=== PATIENT | female | born 1970 | race Two or more races ===

== ENCOUNTER 2020-09-15 09:19 | Emergency (ER) | payer BC, MEDICAID ==
[~2020-09-15] VITALS: Ht 162.6 cm; Wt 86.2 kg
[2020-09-15 10:07] VITALS: BP 150/87
[2020-09-15] MEDS ORDERED: TETANUS-DIPTH-ACEL PERTUSSIS 0.5ML SYR Tdap IM ONE (11:00)
== END 2020-09-15 11:40 | disposition home or self-care (01) ==
LOC: ER 09:19
DX: S61.512A Laceration without foreign body of left wrist, initial encounter (principal); E11.9 Type 2 diabetes mellitus without complications; W26.8XXA Contact with other sharp object(s), not elsewhere classified, initial encounter; Y93.89 Activity, other specified; Y92.89 Other specified places as the place of occurrence of the external cause; Y99.8 Other external cause status
CPT/HCPCS: 90471; 90715

== ENCOUNTER 2020-10-17 06:29 | Inpatient (IN) | payer BC ==
[2020-10-17] VITALS (44 sets, daily range): BP systolic 73–134; BP diastolic 35–57
[~2020-10-17] VITALS: Ht 162.6 cm; Wt 81.4 kg
[2020-10-17] MEDS ORDERED: SODIUM CHLORIDE 0.9% 1,000 ML IVB ONE (07:45)
[2020-10-17 08:07] LABS: Basophils # (auto) 0.1 10 ^3/uL (0-0.2); Eosinophils % (auto) 0.2 % (0.0-7.0); Nucleated Red Blood Cells % 0.1 %
[2020-10-17 08:09] LABS: Basophils % (auto) 0.4 % (0.0-2.0); Eosinophils # (auto) 0 10 ^3/uL (0-0.8); Hematocrit 25.9 % (36.0-46.0); Lymphocytes # (auto) 2.5 10 ^3/uL (0.4-5.4); Lymphocytes % (auto) 11.5 % (10.0-50.0); Mean Corpuscular Hemoglobin 26.5 pg (28.0-32.0); Mean Corpuscular Hgb Conc. 25.9 g/dL (32.0-36.0); Mean Corpuscular Volume 102.2 fL (80.0-100.0); Monocytes # (auto) 1.8 10 ^3/uL (0-1.3); Monocytes % (auto) 8.2 % (0.0-12.0); Neutrophils # (auto) 17.1 10 ^3/uL (1.6-8.6); Neutrophils % (auto) 79.7 % (37.0-80.0); Red Blood Cells 2.53 10^6/uL (4.0-5.20); White Blood Cell 21.5 10^3/uL (4.4-10.8)
[2020-10-17] MEDS ORDERED: SODIUM BICARBONATE 8.4% INJ 50ML SYRINGE ONE (08:12)
[2020-10-17] MEDS ORDERED: SODIUM BICARBONATE 8.4 % INJ 50ML VIAL IV ONE ×2 (08:15→09:00)
[2020-10-17 08:22] LABS: Hemoglobin 6.7 g/dL (12.2-16.2)
[2020-10-17 08:35] LABS: Magnesium 2.5 mg/dL (1.6-2.6)
[2020-10-17 08:38] LABS: Bilirubin, Total 0.3 mg/dL (0.2-1.0); Total Protein 4.9 g/dL (6.4-8.2)
[2020-10-17] MEDS ORDERED: SODIUM CHLORIDE 0.9% 2,000 ML IV ONE (08:45)
[2020-10-17] MEDS ORDERED: INSULIN LANTUS (GLARGINE) 1 /0.01ml (100units/ml) SC ONE (09:00)
[2020-10-17] MEDS ORDERED: InsuLIN REG 1unit/0.01ml Soln (100units/ml) IV ONE (09:00)
[2020-10-17] MEDS ORDERED: LORazepam 2MG/ML-1ML VIAL ONE (09:00)
[2020-10-17] MEDS ORDERED: CALCIUM GLUC 1,000mg/50ml-NS 50 ML IV ONE (09:00)
[2020-10-17] MEDS ORDERED: InsuLIN REG 1unit/0.01ml Soln (100units/ml) ONE (09:00)
[2020-10-17] MEDS ORDERED: LORazepam 2MG/ML-1ML VIAL IV ONE ×2 (09:00→11:45)
[2020-10-17] MEDS ORDERED: DEXTROSE (50%) 50ML SYRG IV PRN ×2 (09:00→21:15)
[2020-10-17] MEDS ORDERED: NOREPINEPHRINE 8 MG/250ML KIT 250 ML IV ONE (09:00)
[2020-10-17] MEDS ORDERED: InsuLIN R (HUMAN) 100 UNITS in SODIUM CHL 0.9% 99 ML IV SCH ×4 (09:00→15:30)
[2020-10-17 09:08] LABS: BUN/Creatinine Ratio 15.7; Calcium 5.7 mg/dL (8.5-10.1); Potassium 6.4 mmol/L (3.5-5.1)
[2020-10-17 09:14] LABS: Urine Bacteria NONE SEEN /hpf (None Seen); Urine Blood 1+ /uL (Negative); Urine Hyaline Cast FEW /lpf (0 - 2); Urine Specific Gravity 1.017 (1.001-1.035); Urine WBC 2 /hpf (0 - 5)
[2020-10-17] MEDS: SODIUM CHLORIDE 0.9% 1,000 ML IV SCH ×6 (09:19→20:39)
[2020-10-17] MEDS: NOREPINEPHRINE 8 MG/250ML KIT 250 ML IV SCH ×2 (09:19→17:42)
[2020-10-17] MEDS: ACCU-CHEK COMFORT CURVE STRIP VI SCH ×9 (09:20→22:39)
[2020-10-17 09:29] LABS: Alcohol, Urine < 3.0 mg/dL (0-10); Amphetamine Screen, Urine NEGATIVE (NEGATIVE); Barbiturate Scree,Urine NEGATIVE (NEGATIVE); Benzodiazephine Screen, Urine NEGATIVE (NEGATIVE); Cannabinoid Screen, Urine NEGATIVE (NEGATIVE); Cocaine Screen, Urine NEGATIVE (NEGATIVE); Opiate Scree,Urine NEGATIVE (NEGATIVE); Phencyclidine Screen, Urine NEGATIVE (NEGATIVE)
[2020-10-17 09:33] LABS: Magnesium 2.1 mg/dL (1.6-2.6)
[2020-10-17 10:09] LABS: Phosphorus 9.6 mg/dL (2.5-4.90)
[2020-10-17 10:28] LABS: Lactic Acid w/Reflex 4.7 mmol/L (0.4-2.0)
[2020-10-17] MEDS ORDERED: INSREG3 (11:02)
[2020-10-17] MEDS ORDERED: GABA300C10 PO (11:02)
[2020-10-17] MEDS ORDERED: INSU1INJ19 SC (11:02)
[2020-10-17] MEDS ORDERED: LOSA-69 PO (11:02)
[2020-10-17] MEDS ORDERED: PROCHLORPERAZINE EDISYLATE 5 MG/ML 2ML VIAL ONE (11:36)
[2020-10-17] MEDS ORDERED: PROCHLORPERAZINE EDISYLATE 5 MG/ML 2ML VIAL IV ONE (11:45)
[2020-10-17 11:58] LABS: BUN/Creatinine Ratio 16.8; Calcium 7.2 mg/dL (8.5-10.1); Potassium 4.8 mmol/L (3.5-5.1)
[2020-10-17] MEDS ORDERED: ETOMIDATE (2MG/ML) 20ML VIAL IV ONE ×2 (12:17→12:45)
[2020-10-17] MEDS ORDERED: PROPOFOL 100 ML IV ONE (12:17)
[2020-10-17] MEDS ORDERED: ROCURONIUM 10MG/ML 10ML VIAL IV ONE ×2 (12:17→12:45)
[2020-10-17] MEDS ORDERED: fentaNYL Drip 2500mCg/250mlNS 250 ML IV ONE (12:19)
[2020-10-17] MEDS: PROPOFOL 100 ML IV SCH ×3 (12:51→20:37)
[2020-10-17] MEDS: fentaNYL Drip 2500mCg/250mlNS 250 ML IV SCH (12:51)
[2020-10-17] MEDS ORDERED: SODIUM CHLORIDE 0.9% 1,000 ML IV SCH (13:00)
[2020-10-17] MEDS ORDERED: NITROGLYCERIN 0.4 MG SL TAB SL PRN (13:00)
[2020-10-17] MEDS ORDERED: MORPHINE SULF INJ 2 MG/ML SYRINGE 1ML IV PRN (13:00)
[2020-10-17] MEDS ORDERED: MIDAZOLAM DRIP 50 mg/50mL 50 ML IV ONE (14:30)
[2020-10-17] MEDS: MIDAZOLAM DRIP 50 mg/50mL 50 ML IV SCH (14:30)
[2020-10-17] MEDS: CLINDAMYCIN 300MG IV 50 ML IV SCH ×2 (15:14→15:24)
[2020-10-17 15:34] LABS: Cholesterol 112 mg/dL (< 200); Triglycerides 174 mg/dL (< 150)
[2020-10-17 15:37] LABS: HDL Cholesterol 32 mg/dL (40-59); LDL Cholesterol 65 mg/dL (< 100)
[2020-10-17] MEDS: PHENYLEPHRINE IV 250 ML IV SCH (17:12)
[2020-10-17 17:49] LABS: BUN/Creatinine Ratio 18.3; Calcium 6.9 mg/dL (8.5-10.1); Potassium 3.5 mmol/L (3.5-5.1)
[2020-10-17 21:23] LABS: Calcium 7.3 mg/dL (8.5-10.1); Potassium 3.2 mmol/L (3.5-5.1)
[2020-10-17 21:25] LABS: BUN/Creatinine Ratio 18.5
[2020-10-17] MEDS: InsuLIN R (HUMAN) 100 UNITS in SODIUM CHL 0.9% 99 ML IV SCH ×2 (21:29→22:42)
[2020-10-17] MEDS ORDERED: POTASSIUM CHL 20MEQ/100ML 100 ML IV ONE (22:45)
[2020-10-17] MEDS: SOD CHL 0.45% 1,000 ML IV SCH (23:13)
[2020-10-18] VITALS (103 sets, daily range): BP systolic 95–130; BP diastolic 46–77
[2020-10-18] MEDS: ACCU-CHEK COMFORT CURVE STRIP VI SCH ×13 (00:11→18:05)
[2020-10-18] MEDS: PHENYLEPHRINE IV 250 ML IV SCH ×3 (00:35→17:15)
[2020-10-18] MEDS: SODIUM CHLORIDE 0.9% 1,000 ML IV SCH ×3 (01:45→11:03)
[2020-10-18 04:06] LABS: Basophils # (auto) 0.1 10 ^3/uL (0-0.2); Eosinophils # (auto) 0 10 ^3/uL (0-0.8); Eosinophils % (auto) 0.1 % (0.0-7.0); Hemoglobin 10.1 g/dL (12.2-16.2); Mean Corpuscular Hgb Conc. 33.4 g/dL (32.0-36.0); Red Cell Distribution Width 17.3 % (11.8-14.3)
[2020-10-18 04:07] LABS: Basophils % (auto) 0.4 % (0.0-2.0); Hematocrit 30.2 % (36.0-46.0); Lymphocytes # (auto) 2.4 10 ^3/uL (0.4-5.4); Lymphocytes % (auto) 10.5 % (10.0-50.0); Mean Corpuscular Hemoglobin 26.5 pg (28.0-32.0); Mean Corpuscular Volume 79.4 fL (80.0-100.0); Monocytes # (auto) 1.3 10 ^3/uL (0-1.3); Neutrophils # (auto) 18.5 10 ^3/uL (1.6-8.6); Red Blood Cells 3.81 10^6/uL (4.0-5.20); White Blood Cell 22.3 10^3/uL (4.4-10.8)
[2020-10-18 04:20] LABS: Calcium 6.8 mg/dL (8.5-10.1); Magnesium 2.1 mg/dL (1.6-2.6); Potassium 3.5 mmol/L (3.5-5.1)
[2020-10-18 04:26] LABS: Albumin 2.7 g/dL (3.4-5.0); BUN/Creatinine Ratio 22.2; Bilirubin, Total 0.6 mg/dL (0.2-1.0); Phosphorus 1.7 mg/dL (2.5-4.90); Total Protein 6.3 g/dL (6.4-8.2)
[2020-10-18] MEDS: CLINDAMYCIN 300MG IV 50 ML IV SCH ×3 (06:29→22:08)
[2020-10-18] MEDS: cefTRIAXone 1GM/50ML D5W 50 ML IV SCH (09:05)
[2020-10-18] MEDS: PROPOFOL 100 ML IV SCH ×3 (09:05→19:58)
[2020-10-18] MEDS: fentaNYL Drip 2500mCg/250mlNS 250 ML IV SCH (09:22)
[2020-10-18] MEDS: INSULIN LANTUS (GLARGINE) 1 /0.01ml (100units/ml) SC SCH (10:18)
[2020-10-18] MEDS: PANTOPRAZOLE 40 MG/10 ML VIAL INJ IV SCH (10:18)
[2020-10-18] MEDS: SOD CHL 0.45% 1,000 ML IV SCH ×2 (11:03→18:45)
[2020-10-18] MEDS: NOREPINEPHRINE 8 MG/250ML KIT 250 ML IV SCH ×2 (11:22→19:58)
[2020-10-18 12:51] LABS: BUN/Creatinine Ratio 18.4; Calcium 6.6 mg/dL (8.5-10.1); Potassium 3.5 mmol/L (3.5-5.1)
[2020-10-18] MEDS: MIDAZOLAM DRIP 50 mg/50mL 50 ML IV SCH (15:24)
[2020-10-18] MEDS ORDERED: DEXTROSE (50%) 50ML SYRG IV PRN (20:30)
[2020-10-19] VITALS (102 sets, daily range): BP systolic 88–192; BP diastolic 40–95
[2020-10-19] MEDS: ACCU-CHEK COMFORT CURVE STRIP VI SCH ×5 (00:17→23:46)
[2020-10-19] MEDS: InsuLIN REG 1unit/0.01ml Soln (100units/ml) SC SCH ×5 (00:19→23:52)
[2020-10-19] MEDS: PHENYLEPHRINE IV 250 ML IV SCH ×3 (01:35→17:57)
[2020-10-19] MEDS: SOD CHL 0.45% 1,000 ML IV SCH ×3 (03:09→16:44)
[2020-10-19 04:34] LABS: Basophils # (auto) 0.1 10 ^3/uL (0-0.2); Basophils % (auto) 0.7 % (0.0-2.0); Eosinophils # (auto) 0.2 10 ^3/uL (0-0.8); Eosinophils % (auto) 1.5 % (0.0-7.0); Hematocrit 26.7 % (36.0-46.0); Lymphocytes # (auto) 2.4 10 ^3/uL (0.4-5.4); Mean Corpuscular Hemoglobin 26.7 pg (28.0-32.0); Mean Corpuscular Hgb Conc. 33.5 g/dL (32.0-36.0); Mean Corpuscular Volume 79.5 fL (80.0-100.0); Monocytes # (auto) 0.7 10 ^3/uL (0-1.3); Monocytes % (auto) 5.7 % (0.0-12.0); Neutrophils # (auto) 8.2 10 ^3/uL (1.6-8.6); Neutrophils % (auto) 71.1 % (37.0-80.0); Nucleated Red Blood Cells % 0.1 %; Red Blood Cells 3.36 10^6/uL (4.0-5.20); White Blood Cell 11.6 10^3/uL (4.4-10.8)
[2020-10-19 04:51] LABS: Calcium 6.6 mg/dL (8.5-10.1); Potassium 3.1 mmol/L (3.5-5.1)
[2020-10-19 04:52] LABS: BUN/Creatinine Ratio 12.4
[2020-10-19] MEDS: CLINDAMYCIN 300MG IV 50 ML IV SCH ×3 (06:10→22:30)
[2020-10-19] MEDS: PROPOFOL 100 ML IV SCH ×2 (07:24→13:04)
[2020-10-19] MEDS: fentaNYL Drip 2500mCg/250mlNS 250 ML IV SCH (08:52)
[2020-10-19] MEDS: cefTRIAXone 1GM/50ML D5W 50 ML IV SCH (09:04)
[2020-10-19] MEDS: INSULIN LANTUS (GLARGINE) 1 /0.01ml (100units/ml) SC SCH (10:10)
[2020-10-19] MEDS: PANTOPRAZOLE 40 MG/10 ML VIAL INJ IV SCH (10:17)
[2020-10-19] MEDS: POTASSIUM CHL 20MEQ/100ML 100 ML IV SCH ×2 (12:24→14:19)
[2020-10-19] MEDS: MIDAZOLAM DRIP 50 mg/50mL 50 ML IV SCH (15:45)
[2020-10-19] MEDS ORDERED: hydrALAZINE HCL 20 MG/ML VL ONE (16:47)
[2020-10-19] MEDS ORDERED: ACETAMINOPHEN 650 mg PER 20.3 mL UD ONE (16:47)
[2020-10-19] MEDS: LORazepam 2MG/ML-1ML VIAL IV PRN (18:14)
[2020-10-20] VITALS (101 sets, daily range): BP systolic 82–187; BP diastolic 32–90
[2020-10-20] MEDS: SOD CHL 0.45% 1,000 ML IV SCH ×3 (00:45→22:03)
[2020-10-20] MEDS: PHENYLEPHRINE IV 250 ML IV SCH ×3 (02:35→19:15)
[2020-10-20 04:00] LABS: Basophils # (auto) 0.1 10 ^3/uL (0-0.2); Eosinophils # (auto) 0.1 10 ^3/uL (0-0.8); Hematocrit 29.4 % (36.0-46.0); Mean Corpuscular Hemoglobin 26.4 pg (28.0-32.0); Monocytes # (auto) 0.5 10 ^3/uL (0-1.3); White Blood Cell 10.2 10^3/uL (4.4-10.8)
[2020-10-20 04:01] LABS: Basophils % (auto) 0.8 % (0.0-2.0); Eosinophils % (auto) 1.3 % (0.0-7.0); Hemoglobin 9.7 g/dL (12.2-16.2); Lymphocytes # (auto) 2.1 10 ^3/uL (0.4-5.4); Lymphocytes % (auto) 20.8 % (10.0-50.0); Mean Corpuscular Volume 79.9 fL (80.0-100.0); Monocytes % (auto) 4.4 % (0.0-12.0); Neutrophils # (auto) 7.4 10 ^3/uL (1.6-8.6); Neutrophils % (auto) 72.7 % (37.0-80.0); Nucleated Red Blood Cells % 0.1 %; Red Blood Cells 3.68 10^6/uL (4.0-5.20); Red Cell Distribution Width 17.9 % (11.8-14.3)
[2020-10-20 04:11] LABS: INR 0.97 (0.9-1.15); Partial Thromboplastin Time 24.8 sec (23.0-31.2)
[2020-10-20 05:14] LABS: Albumin 2.1 g/dL (3.4-5.0); Bilirubin, Direct 0.1 mg/dL (0-0.2); Calcium 7.1 mg/dL (8.5-10.1); Magnesium 2.2 mg/dL (1.6-2.6); Potassium 3.4 mmol/L (3.5-5.1)
[2020-10-20 05:17] LABS: BUN/Creatinine Ratio 10.8; Bilirubin, Total 0.6 mg/dL (0.2-1.0)
[2020-10-20] MEDS: ACCU-CHEK COMFORT CURVE STRIP VI SCH ×3 (06:06→17:59)
[2020-10-20] MEDS: InsuLIN REG 1unit/0.01ml Soln (100units/ml) SC SCH ×3 (06:08→18:50)
[2020-10-20] MEDS: NOREPINEPHRINE 8 MG/250ML KIT 250 ML IV SCH (09:00)
[2020-10-20] MEDS: INSULIN LANTUS (GLARGINE) 1 /0.01ml (100units/ml) SC SCH (09:59)
[2020-10-20] MEDS: cefTRIAXone 1GM/50ML D5W 50 ML IV SCH (10:12)
[2020-10-20] MEDS: PANTOPRAZOLE 40 MG/10 ML VIAL INJ IV SCH (10:12)
[2020-10-20] MEDS: ENOXAPARIN SOD 40 MG/0.4 ML SYRINGE SC SCH (10:13)
[2020-10-20] MEDS: fentaNYL Drip 2500mCg/250mlNS 250 ML IV SCH (12:45)
[2020-10-20] MEDS: MIDAZOLAM DRIP 50 mg/50mL 50 ML IV SCH (15:45)
[2020-10-20] MEDS: POTASSIUM CHL 20MEQ/100ML 100 ML IV SCH (22:03)
[2020-10-20 22:45] LABS: Urine Bacteria NONE SEEN /hpf (None Seen); Urine Blood 2+ /uL (Negative); Urine Budding Yeast LOADED /hpf (None Seen); Urine Specific Gravity 1.019 (1.001-1.035); Urine WBC 116 /hpf (0 - 5); Urine WBC Clumps PRESENT /hpf (None Seen)
[2020-10-21] VITALS (92 sets, daily range): BP systolic 87–178; BP diastolic 37–87
[2020-10-21] MEDS: POTASSIUM CHL 20MEQ/100ML 100 ML IV SCH (00:11)
[2020-10-21] MEDS: ACCU-CHEK COMFORT CURVE STRIP VI SCH ×4 (00:11→18:04)
[2020-10-21] MEDS: InsuLIN REG 1unit/0.01ml Soln (100units/ml) SC SCH ×4 (00:23→18:00)
[2020-10-21] MEDS: ACETAMINOPHEN 650 mg PER 20.3 mL UD GT PRN (00:31)
[2020-10-21] MEDS: PHENYLEPHRINE IV 250 ML IV SCH ×2 (03:35→09:52)
[2020-10-21 06:16] LABS: Basophils # (auto) 0.1 10 ^3/uL (0-0.2); Eosinophils # (auto) 0.6 10 ^3/uL (0-0.8); Hemoglobin 8.9 g/dL (12.2-16.2); Lymphocytes # (auto) 1.5 10 ^3/uL (0.4-5.4); Monocytes # (auto) 0.7 10 ^3/uL (0-1.3); Red Blood Cells 3.39 10^6/uL (4.0-5.20)
[2020-10-21 06:18] LABS: Basophils % (auto) 1.1 % (0.0-2.0); Eosinophils % (auto) 5.5 % (0.0-7.0); Hematocrit 27.5 % (36.0-46.0); Lymphocytes % (auto) 12.7 % (10.0-50.0); Mean Corpuscular Hemoglobin 26.4 pg (28.0-32.0); Mean Corpuscular Hgb Conc. 32.5 g/dL (32.0-36.0); Mean Corpuscular Volume 81.2 fL (80.0-100.0); Monocytes % (auto) 6.2 % (0.0-12.0); Neutrophils # (auto) 8.6 10 ^3/uL (1.6-8.6); Neutrophils % (auto) 74.5 % (37.0-80.0); Red Cell Distribution Width 18.3 % (11.8-14.3); White Blood Cell 11.5 10^3/uL (4.4-10.8)
[2020-10-21 06:36] LABS: Potassium 3.6 mmol/L (3.5-5.1)
[2020-10-21] MEDS: SOD CHL 0.45% 1,000 ML IV SCH ×2 (07:00→16:45)
[2020-10-21] MEDS: NOREPINEPHRINE 8 MG/250ML KIT 250 ML IV SCH (08:29)
[2020-10-21] MEDS: ENOXAPARIN SOD 40 MG/0.4 ML SYRINGE SC SCH (08:34)
[2020-10-21] MEDS: PANTOPRAZOLE 40 MG/10 ML VIAL INJ IV SCH (08:34)
[2020-10-21] MEDS: cefTRIAXone 1GM/50ML D5W 50 ML IV SCH (08:34)
[2020-10-21] MEDS: LORazepam 2MG/ML-1ML VIAL IV PRN ×2 (08:54→14:12)
[2020-10-21] MEDS: INSULIN LANTUS (GLARGINE) 1 /0.01ml (100units/ml) SC SCH (09:47)
[2020-10-21] MEDS: fentaNYL Drip 2500mCg/250mlNS 250 ML IV SCH (11:12)
[2020-10-21] MEDS: PROPOFOL 100 ML IV SCH ×3 (12:45→23:13)
[2020-10-21] MEDS: MIDAZOLAM DRIP 50 mg/50mL 50 ML IV SCH (14:04)
[2020-10-22] VITALS (91 sets, daily range): BP systolic 87–209; BP diastolic 33–158
[2020-10-22] MEDS: ACETAMINOPHEN 650 mg PER 20.3 mL UD GT PRN (00:05)
[2020-10-22] MEDS: InsuLIN REG 1unit/0.01ml Soln (100units/ml) SC SCH ×4 (00:18→18:08)
[2020-10-22] MEDS: ACCU-CHEK COMFORT CURVE STRIP VI SCH ×5 (00:18→18:07)
[2020-10-22] MEDS: SOD CHL 0.45% 1,000 ML IV SCH ×2 (03:02→13:00)
[2020-10-22] MEDS: PROPOFOL 100 ML IV SCH ×5 (03:04→23:01)
[2020-10-22 04:07] LABS: Basophils # (auto) 0.1 10 ^3/uL (0-0.2); Eosinophils # (auto) 0.5 10 ^3/uL (0-0.8); Lymphocytes # (auto) 1.1 10 ^3/uL (0.4-5.4); Monocytes # (auto) 0.7 10 ^3/uL (0-1.3); Red Cell Distribution Width 17.5 % (11.8-14.3); White Blood Cell 11.4 10^3/uL (4.4-10.8)
[2020-10-22 04:08] LABS: Basophils % (auto) 0.5 % (0.0-2.0); Eosinophils % (auto) 4.2 % (0.0-7.0); Hematocrit 26.4 % (36.0-46.0); Hemoglobin 8.6 g/dL (12.2-16.2); Lymphocytes % (auto) 9.6 % (10.0-50.0); Mean Corpuscular Hemoglobin 26.4 pg (28.0-32.0); Mean Corpuscular Hgb Conc. 32.6 g/dL (32.0-36.0); Monocytes % (auto) 6.4 % (0.0-12.0); Neutrophils % (auto) 79.3 % (37.0-80.0); Nucleated Red Blood Cells % 0.1 %; Red Blood Cells 3.26 10^6/uL (4.0-5.20)
[2020-10-22 04:25] LABS: Potassium 3.3 mmol/L (3.5-5.1)
[2020-10-22 04:33] LABS: Albumin 1.7 g/dL (3.4-5.0); BUN/Creatinine Ratio 13.5; Bilirubin, Total 0.1 mg/dL (0.2-1.0); Calcium 7.4 mg/dL (8.5-10.1); Total Protein 5.6 g/dL (6.4-8.2)
[2020-10-22] MEDS: PHENYLEPHRINE IV 250 ML IV SCH ×4 (07:32→21:15)
[2020-10-22] MEDS: NOREPINEPHRINE 8 MG/250ML KIT 250 ML IV SCH (08:51)
[2020-10-22] MEDS: cefTRIAXone 1GM/50ML D5W 50 ML IV SCH (08:53)
[2020-10-22] MEDS: PANTOPRAZOLE 40 MG/10 ML VIAL INJ IV SCH (08:53)
[2020-10-22] MEDS: ENOXAPARIN SOD 40 MG/0.4 ML SYRINGE SC SCH (08:56)
[2020-10-22] MEDS ORDERED: TPN PER PHARMACY 0 ML IV SCH (10:00)
[2020-10-22] MEDS: INSULIN LANTUS (GLARGINE) 1 /0.01ml (100units/ml) SC SCH (10:00)
[2020-10-22] MEDS: fentaNYL Drip 2500mCg/250mlNS 250 ML IV SCH (10:53)
[2020-10-22 11:36] LABS: Magnesium 2.2 mg/dL (1.6-2.6)
[2020-10-22 11:41] LABS: Phosphorus 2.8 mg/dL (2.5-4.90); Pre Albumin 5.7 mg/dL (20.0-40.0)
[2020-10-22] MEDS ORDERED: POTASSIUM PHOSPHATE 22 MEQ in SODIUM CHL 0.9% 100 ML IV ONE (13:00)
[2020-10-22] MEDS ORDERED: ALBUTEROL SULF 2.5 MG/0.5ML(0.5%) NEB SOLN ONE (13:55)
[2020-10-22] MEDS: MIDAZOLAM DRIP 50 mg/50mL 50 ML IV SCH (15:24)
[2020-10-22 15:37] LABS: Urine Bacteria MANY /hpf (None Seen); Urine Blood 2+ /uL (Negative); Urine Budding Yeast LOADED /hpf (None Seen); Urine Specific Gravity 1.017 (1.001-1.035); Urine WBC 661 /hpf (0 - 5); Urine WBC Clumps PRESENT /hpf (None Seen)
[2020-10-22] MEDS ORDERED: FUROSEMIDE 40 MG/4 ML VIAL IV ONE (16:00)
[2020-10-22] MEDS ORDERED: DEXTROSE (50%) 50ML SYRG IV SCH (18:00)
[2020-10-22] MEDS ORDERED: TPN PER PHARMACY IV NR ×7 (20:00)
[2020-10-23] VITALS (89 sets, daily range): BP systolic 89–182; BP diastolic 37–116
[2020-10-23] MEDS: ACCU-CHEK COMFORT CURVE STRIP VI SCH ×4 (00:14→17:43)
[2020-10-23] MEDS: InsuLIN REG 1unit/0.01ml Soln (100units/ml) SC SCH ×4 (00:15→18:03)
[2020-10-23] MEDS: PROPOFOL 100 ML IV SCH ×5 (03:01→22:52)
[2020-10-23 04:25] LABS: Albumin 1.6 g/dL (3.4-5.0); Calcium 7.2 mg/dL (8.5-10.1); Magnesium 1.9 mg/dL (1.6-2.6); Potassium 3.2 mmol/L (3.5-5.1)
[2020-10-23 04:27] LABS: BUN/Creatinine Ratio 10.7
[2020-10-23] MEDS: SOD CHL 0.45% 1,000 ML IV SCH ×3 (04:27→18:45)
[2020-10-23 04:30] LABS: Bilirubin, Total 0.2 mg/dL (0.2-1.0); Phosphorus 2.9 mg/dL (2.5-4.90); Total Protein 5.6 g/dL (6.4-8.2)
[2020-10-23] MEDS: PHENYLEPHRINE IV 250 ML IV SCH ×3 (05:35→22:15)
[2020-10-23] MEDS: NOREPINEPHRINE 8 MG/250ML KIT 250 ML IV SCH (08:42)
[2020-10-23] MEDS: cefTRIAXone 1GM/50ML D5W 50 ML IV SCH (08:42)
[2020-10-23] MEDS ORDERED: FUROSEMIDE 40 MG/4 ML VIAL IV ONE (09:15)
[2020-10-23] MEDS: POTASSIUM CHL 20MEQ/100ML 100 ML IV SCH ×5 (09:18→13:15)
[2020-10-23] MEDS: PANTOPRAZOLE 40 MG/10 ML VIAL INJ IV SCH (10:06)
[2020-10-23] MEDS: ENOXAPARIN SOD 40 MG/0.4 ML SYRINGE SC SCH (10:07)
[2020-10-23] MEDS: INSULIN LANTUS (GLARGINE) 1 /0.01ml (100units/ml) SC SCH (10:09)
[2020-10-23] MEDS ORDERED: GLYCOPYRROLATE 0.2 MG/ML 1ML VIAL IV ONE (10:30)
[2020-10-23] MEDS: MIDAZOLAM DRIP 50 mg/50mL 50 ML IV SCH ×2 (11:16→20:19)
[2020-10-23] MEDS: fentaNYL Drip 2500mCg/250mlNS 250 ML IV SCH ×2 (12:06→19:47)
[2020-10-23] MEDS: ALBUTEROL SULF 2.5 MG/0.5ML(0.5%) NEB SOLN NEB SCH ×3 (16:12→22:11)
[2020-10-23] MEDS: ACETYLCYSTEINE 10 %(100MG/ML) SOL 4ML NEB SCH ×2 (16:13→18:44)
[2020-10-23] MEDS ORDERED: VANCOMYCIN PER PHARMACY 0 MG IV SCH (17:30)
[2020-10-23] MEDS ORDERED: ACYCLOVIR 10MG/KG Q8HR PER RX 0 ML IV SCH (17:30)
[2020-10-23] MEDS ORDERED: VANCOMYCIN 1GM/250ML 250 ML IV ONE (18:00)
[2020-10-23] MEDS ORDERED: TPN PER PHARMACY IV NR ×10 (20:00)
[2020-10-23] MEDS: ACYCLOVIR SOD 50MG/ML 700 MG in SODIUM CHL 0.9% 250 ML IV SCH (20:10)
[2020-10-23] MEDS: CEFTRIAXONE SODIUM 2 GM in D5W 5% 50 ML IV SCH (21:58)
[2020-10-23] MEDS ORDERED: IVERMECTIN 3 MG TAB PO SCH (22:00)
[2020-10-24] VITALS (102 sets, daily range): BP systolic 82–182; BP diastolic 38–99
[2020-10-24] MEDS: ACCU-CHEK COMFORT CURVE STRIP VI SCH ×4 (00:32→17:34)
[2020-10-24] MEDS: InsuLIN REG 1unit/0.01ml Soln (100units/ml) SC SCH ×4 (00:33→17:34)
[2020-10-24] MEDS: PROPOFOL 100 ML IV SCH ×2 (02:02→21:11)
[2020-10-24] MEDS: VANCOMYCIN 1GM/250ML 250 ML IV SCH ×4 (02:11→22:10)
[2020-10-24 04:35] LABS: Albumin 1.6 g/dL (3.4-5.0); Calcium 7.2 mg/dL (8.5-10.1); Potassium 3.7 mmol/L (3.5-5.1)
[2020-10-24 04:38] LABS: BUN/Creatinine Ratio 15.9; Bilirubin, Total 0.2 mg/dL (0.2-1.0); Phosphorus 2.7 mg/dL (2.5-4.90); Total Protein 5.9 g/dL (6.4-8.2)
[2020-10-24] MEDS: SOD CHL 0.45% 1,000 ML IV SCH ×2 (04:45→14:20)
[2020-10-24] MEDS: ACYCLOVIR SOD 50MG/ML 700 MG in SODIUM CHL 0.9% 250 ML IV SCH ×3 (05:06→19:26)
[2020-10-24] MEDS: ACETYLCYSTEINE 10 %(100MG/ML) SOL 4ML NEB SCH ×3 (06:31→22:24)
[2020-10-24] MEDS: ALBUTEROL SULF 2.5 MG/0.5ML(0.5%) NEB SOLN NEB SCH ×6 (06:31→22:24)
[2020-10-24] MEDS: PHENYLEPHRINE IV 250 ML IV SCH ×3 (06:35→23:15)
[2020-10-24] MEDS: NOREPINEPHRINE 8 MG/250ML KIT 250 ML IV SCH (09:00)
[2020-10-24] MEDS: CEFTRIAXONE SODIUM 2 GM in D5W 5% 50 ML IV SCH ×2 (09:00→21:10)
[2020-10-24] MEDS ORDERED: SOD CHL 0.45% 1,000 ML IV SCH ×2 (09:30)
[2020-10-24] MEDS: ENOXAPARIN SOD 40 MG/0.4 ML SYRINGE SC SCH (10:00)
[2020-10-24] MEDS: PANTOPRAZOLE 40 MG/10 ML VIAL INJ IV SCH (10:00)
[2020-10-24] MEDS: INSULIN LANTUS (GLARGINE) 1 /0.01ml (100units/ml) SC SCH (10:00)
[2020-10-24] MEDS ORDERED: ROCURONIUM 10MG/ML 10ML VIAL IV ONE ×2 (11:30→11:47)
[2020-10-24] MEDS ORDERED: TPN PER PHARMACY IV NR ×11 (20:00)
[2020-10-24] MEDS: MIDAZOLAM DRIP 50 mg/50mL 50 ML IV SCH (22:16)
[2020-10-24] MEDS: IVERMECTIN 3 MG TAB PO SCH (22:35)
[2020-10-25] VITALS (103 sets, daily range): BP systolic 81–170; BP diastolic 35–92
[2020-10-25] MEDS: ACCU-CHEK COMFORT CURVE STRIP VI SCH ×5 (00:10→23:44)
[2020-10-25] MEDS: InsuLIN REG 1unit/0.01ml Soln (100units/ml) SC SCH ×5 (00:10→23:47)
[2020-10-25] MEDS: PROPOFOL 100 ML IV SCH ×6 (00:48→23:51)
[2020-10-25] MEDS: ALBUTEROL SULF 2.5 MG/0.5ML(0.5%) NEB SOLN NEB SCH ×6 (02:37→21:58)
[2020-10-25 04:16] LABS: Basophils # (auto) 0 10 ^3/uL (0-0.2); Eosinophils # (auto) 0.4 10 ^3/uL (0-0.8); Hemoglobin 8.4 g/dL (12.2-16.2); Lymphocytes # (auto) 1.1 10 ^3/uL (0.4-5.4); Mean Corpuscular Volume 80.9 fL (80.0-100.0); Monocytes # (auto) 0.7 10 ^3/uL (0-1.3); Neutrophils # (auto) 2.8 10 ^3/uL (1.6-8.6); Nucleated Red Blood Cells % 0.1 %
[2020-10-25 04:18] LABS: Basophils % (auto) 0.6 % (0.0-2.0); Eosinophils % (auto) 7.4 % (0.0-7.0); Hematocrit 25.3 % (36.0-46.0); Lymphocytes % (auto) 21.6 % (10.0-50.0); Mean Corpuscular Hemoglobin 26.8 pg (28.0-32.0); Mean Corpuscular Hgb Conc. 33.2 g/dL (32.0-36.0); Monocytes % (auto) 14.6 % (0.0-12.0); Neutrophils % (auto) 55.8 % (37.0-80.0); Red Blood Cells 3.13 10^6/uL (4.0-5.20); Red Cell Distribution Width 18.2 % (11.8-14.3)
[2020-10-25] MEDS: ACYCLOVIR SOD 50MG/ML 700 MG in SODIUM CHL 0.9% 250 ML IV SCH ×3 (04:19→20:22)
[2020-10-25 04:34] LABS: Albumin 1.5 g/dL (3.4-5.0); Calcium 7.8 mg/dL (8.5-10.1); Magnesium 2.2 mg/dL (1.6-2.6); Potassium 3.8 mmol/L (3.5-5.1)
[2020-10-25 04:37] LABS: BUN/Creatinine Ratio 21.2
[2020-10-25 04:39] LABS: Bilirubin, Total 0.1 mg/dL (0.2-1.0); Phosphorus 2.8 mg/dL (2.5-4.90); Total Protein 5.6 g/dL (6.4-8.2)
[2020-10-25] MEDS: fentaNYL Drip 2500mCg/250mlNS 250 ML IV SCH ×2 (05:17→22:30)
[2020-10-25] MEDS: ACETYLCYSTEINE 10 %(100MG/ML) SOL 4ML NEB SCH ×3 (06:20→21:59)
[2020-10-25] MEDS: PHENYLEPHRINE IV 250 ML IV SCH ×2 (07:35→15:55)
[2020-10-25] MEDS: NOREPINEPHRINE 8 MG/250ML KIT 250 ML IV SCH (09:00)
[2020-10-25] MEDS: CEFTRIAXONE SODIUM 2 GM in D5W 5% 50 ML IV SCH ×2 (09:28→20:40)
[2020-10-25] MEDS: MIDAZOLAM DRIP 50 mg/50mL 50 ML IV SCH (09:29)
[2020-10-25] MEDS: SOD CHL 0.45% 1,000 ML IV SCH (09:30)
[2020-10-25] MEDS: ENOXAPARIN SOD 40 MG/0.4 ML SYRINGE SC SCH (10:00)
[2020-10-25] MEDS ORDERED: MICAFUNGIN SODIUM 100 MG in SODIUM CHL 0.9% 100 ML IV SCH (10:30)
[2020-10-25] MEDS: PANTOPRAZOLE 40 MG/10 ML VIAL INJ IV SCH (10:38)
[2020-10-25] MEDS: VANCOMYCIN 1GM/250ML 250 ML IV SCH ×2 (10:39→23:25)
[2020-10-25] MEDS: INSULIN LANTUS (GLARGINE) 1 /0.01ml (100units/ml) SC SCH (10:41)
[2020-10-25 14:04] LABS: CSF White Blood Cells 0 CUMM (0-5)
[2020-10-25 15:48] LABS: Protein, CSF 23.4 mg/dL (15-45)
[2020-10-25] MEDS: TPN PER PHARMACY IV NR ×9 (20:14)
[2020-10-25] MEDS: NYSTATIN TOPICAL POWDER 15GM TOP SCH (22:00)
[2020-10-25] MEDS: SODIUM CHL 0.9% IV SCH (22:06)
[2020-10-25] MEDS: ACYCLOVIR SOD IV SCH (22:06)
[2020-10-25] MEDS: IVERMECTIN 3 MG TAB PO SCH (22:36)
[2020-10-26] VITALS (107 sets, daily range): BP systolic 96–175; BP diastolic 34–128
[2020-10-26] MEDS: PHENYLEPHRINE IV 250 ML IV SCH ×3 (00:15→16:55)
[2020-10-26] MEDS: ALBUTEROL SULF 2.5 MG/0.5ML(0.5%) NEB SOLN NEB SCH ×5 (02:17→21:57)
[2020-10-26] MEDS: PROPOFOL 100 ML IV SCH ×5 (02:45→20:01)
[2020-10-26 04:22] LABS: Potassium 4.2 mmol/L (3.5-5.1)
[2020-10-26 04:29] LABS: Albumin 1.5 g/dL (3.4-5.0); BUN/Creatinine Ratio 23.1; Calcium 7.6 mg/dL (8.5-10.1); Magnesium 2.1 mg/dL (1.6-2.6)
[2020-10-26 04:41] LABS: Bilirubin, Total 0.1 mg/dL (0.2-1.0); Phosphorus 2.5 mg/dL (2.5-4.90); Total Protein 5.8 g/dL (6.4-8.2)
[2020-10-26] MEDS: SODIUM CHL 0.9% IV SCH (05:30)
[2020-10-26] MEDS: ACYCLOVIR SOD IV SCH (05:30)
[2020-10-26] MEDS: ACCU-CHEK COMFORT CURVE STRIP VI SCH ×3 (06:08→17:57)
[2020-10-26] MEDS: InsuLIN REG 1unit/0.01ml Soln (100units/ml) SC SCH ×3 (06:14→17:57)
[2020-10-26] MEDS: ACETYLCYSTEINE 10 %(100MG/ML) SOL 4ML NEB SCH (07:28)
[2020-10-26] MEDS: NOREPINEPHRINE 8 MG/250ML KIT 250 ML IV SCH (08:31)
[2020-10-26] MEDS: CEFTRIAXONE SODIUM 2 GM in D5W 5% 50 ML IV SCH (08:43)
[2020-10-26] MEDS: MIDAZOLAM DRIP 50 mg/50mL 50 ML IV SCH ×2 (09:00→15:45)
[2020-10-26] MEDS: PANTOPRAZOLE 40 MG/10 ML VIAL INJ IV SCH (09:26)
[2020-10-26] MEDS: VANCOMYCIN 1GM/250ML 250 ML IV SCH (09:26)
[2020-10-26] MEDS: ENOXAPARIN SOD 40 MG/0.4 ML SYRINGE SC SCH (09:27)
[2020-10-26] MEDS: SOD CHL 0.45% 1,000 ML IV SCH (09:27)
[2020-10-26] MEDS: INSULIN LANTUS (GLARGINE) 1 /0.01ml (100units/ml) SC SCH (09:32)
[2020-10-26] MEDS ORDERED: FUROSEMIDE 40 MG/4 ML VIAL IV ONE (09:45)
[2020-10-26] MEDS: NYSTATIN TOPICAL POWDER 15GM TOP SCH ×2 (10:13→22:01)
[2020-10-26] MEDS ORDERED: SODIUM CHL 0.9% IV SCH (13:30)
[2020-10-26] MEDS ORDERED: ACYCLOVIR SOD IV SCH (13:30)
[2020-10-26] MEDS: hydrALAZINE HCL 20 MG/ML VL IV PRN (18:20)
[2020-10-26] MEDS: TPN PER PHARMACY IV NR ×9 (19:54)
[2020-10-26] MEDS ORDERED: TPN PER PHARMACY IV NR ×10 (20:00)
[2020-10-26] MEDS: IVERMECTIN 3 MG TAB PO SCH (22:01)
[2020-10-26] MEDS: fentaNYL Drip 2500mCg/250mlNS 250 ML IV SCH (22:15)
[2020-10-27] VITALS (89 sets, daily range): BP systolic 95–189; BP diastolic 42–98
[2020-10-27] MEDS: ACCU-CHEK COMFORT CURVE STRIP VI SCH ×4 (00:17→17:47)
[2020-10-27] MEDS: InsuLIN REG 1unit/0.01ml Soln (100units/ml) SC SCH ×4 (00:25→17:50)
[2020-10-27] MEDS: PHENYLEPHRINE IV 250 ML IV SCH ×3 (01:15→17:55)
[2020-10-27] MEDS: ALBUTEROL SULF 2.5 MG/0.5ML(0.5%) NEB SOLN NEB SCH ×7 (02:00→22:06)
[2020-10-27 04:28] LABS: Hematocrit 27.9 % (36.0-46.0); Hemoglobin 9.2 g/dL (12.2-16.2); Mean Corpuscular Hemoglobin 26.2 pg (28.0-32.0); Mean Corpuscular Hgb Conc. 32.9 g/dL (32.0-36.0); Mean Corpuscular Volume 79.5 fL (80.0-100.0); Red Blood Cells 3.51 10^6/uL (4.0-5.20); Red Cell Distribution Width 17.7 % (11.8-14.3); White Blood Cell 13.2 10^3/uL (4.4-10.8)
[2020-10-27 04:38] LABS: Basophils % (manual) 0 (0.0-2.0); Blast Cells 0; Metamyelocytes % 0; Potassium 4.1 mmol/L (3.5-5.1); Promyelocytes % 0; Reactive Lymphocytes 0
[2020-10-27 04:42] LABS: Albumin 1.8 g/dL (3.4-5.0); BUN/Creatinine Ratio 28.8; Magnesium 2.2 mg/dL (1.6-2.6)
[2020-10-27 04:45] LABS: Bilirubin, Total 0.2 mg/dL (0.2-1.0); Phosphorus 2.8 mg/dL (2.5-4.90); Total Protein 6.5 g/dL (6.4-8.2)
[2020-10-27 05:21] LABS: Band Neutrophils % (manual) 18; Eosinophils % (manual) 1 (0-7); Lymphocytes % (manual) 8 (10.0-50.0); Monocytes % (manual) 5 (0-12); Myelocytes % 1
[2020-10-27] MEDS: PROPOFOL 100 ML IV SCH (06:22)
[2020-10-27] MEDS: ACETAMINOPHEN 650 mg PER 20.3 mL UD GT PRN (08:37)
[2020-10-27] MEDS: NOREPINEPHRINE 8 MG/250ML KIT 250 ML IV SCH (09:00)
[2020-10-27] MEDS: INSULIN LANTUS (GLARGINE) 1 /0.01ml (100units/ml) SC SCH (10:05)
[2020-10-27] MEDS: SOD CHL 0.45% 1,000 ML IV SCH (10:06)
[2020-10-27] MEDS: PANTOPRAZOLE 40 MG/10 ML VIAL INJ IV SCH (10:07)
[2020-10-27] MEDS: CEFTRIAXONE SODIUM 2 GM in D5W 5% 50 ML IV SCH (10:11)
[2020-10-27] MEDS: NYSTATIN TOPICAL POWDER 15GM TOP SCH ×2 (10:11→22:22)
[2020-10-27] MEDS: ENOXAPARIN SOD 40 MG/0.4 ML SYRINGE SC SCH (10:11)
[2020-10-27] MEDS: hydrALAZINE HCL 20 MG/ML VL IV PRN (12:25)
[2020-10-27] MEDS ORDERED: MIDAZOLAM HCL 2MG/2ML 2ml VIAL (1mg/ml) IM ONE (13:15)
[2020-10-27] MEDS ORDERED: MIDAZOLAM HCL 2MG/2ML 2ml VIAL (1mg/ml) IV ONE (13:30)
[2020-10-27] MEDS: MIDAZOLAM DRIP 50 mg/50mL 50 ML IV SCH (15:45)
[2020-10-27] MEDS ORDERED: TPN PER PHARMACY IV NR ×9 (20:00)
[2020-10-27] MEDS ORDERED: FUROSEMIDE 40 MG/4 ML VIAL IV ONE (21:30)
[2020-10-27] MEDS: fentaNYL Drip 2500mCg/250mlNS 250 ML IV SCH (21:31)
[2020-10-28] VITALS (87 sets, daily range): BP systolic 79–168; BP diastolic 28–92
[2020-10-28] MEDS: ACCU-CHEK COMFORT CURVE STRIP VI SCH ×4 (00:17→17:35)
[2020-10-28] MEDS: InsuLIN REG 1unit/0.01ml Soln (100units/ml) SC SCH ×4 (00:18→17:34)
[2020-10-28] MEDS: ALBUTEROL SULF 2.5 MG/0.5ML(0.5%) NEB SOLN NEB SCH ×3 (02:08→23:14)
[2020-10-28 04:19] LABS: Albumin 1.7 g/dL (3.4-5.0); BUN/Creatinine Ratio 34.5; Magnesium 2.2 mg/dL (1.6-2.6); Potassium 3.2 mmol/L (3.5-5.1)
[2020-10-28 04:22] LABS: Bilirubin, Total 0.1 mg/dL (0.2-1.0); Phosphorus 2.6 mg/dL (2.5-4.90)
[2020-10-28 04:31] LABS: Pre Albumin 9.8 mg/dL (20.0-40.0)
[2020-10-28] MEDS: fentaNYL Drip 2500mCg/250mlNS 250 ML IV SCH (07:22)
[2020-10-28] MEDS: PROPOFOL 100 ML IV SCH ×4 (07:24→21:49)
[2020-10-28] MEDS: NOREPINEPHRINE 8 MG/250ML KIT 250 ML IV SCH (08:50)
[2020-10-28] MEDS: PHENYLEPHRINE IV 250 ML IV SCH (10:35)
[2020-10-28] MEDS: PANTOPRAZOLE 40 MG/10 ML VIAL INJ IV SCH (10:52)
[2020-10-28] MEDS: NYSTATIN TOPICAL POWDER 15GM TOP SCH ×2 (10:55→21:50)
[2020-10-28] MEDS: ENOXAPARIN SOD 40 MG/0.4 ML SYRINGE SC SCH (10:56)
[2020-10-28] MEDS: INSULIN LANTUS (GLARGINE) 1 /0.01ml (100units/ml) SC SCH (10:57)
[2020-10-28] MEDS: CEFTRIAXONE SODIUM 2 GM in D5W 5% 50 ML IV SCH (11:06)
[2020-10-28] MEDS: SOD CHL 0.45% 1,000 ML IV SCH (11:11)
[2020-10-28] MEDS: POTASSIUM CHL 20MEQ/100ML 100 ML IV SCH ×2 (12:07→14:36)
[2020-10-28] MEDS: MIDAZOLAM DRIP 50 mg/50mL 50 ML IV SCH (13:14)
[2020-10-28] MEDS ORDERED: fentaNYL Drip 2500mCg/250mlNS 250 ML IV ONE (19:59)
[2020-10-28] MEDS ORDERED: TPN PER PHARMACY IV NR ×9 (20:00)
[2020-10-29] VITALS (102 sets, daily range): BP systolic 74–193; BP diastolic 30–96
[2020-10-29] MEDS: ACCU-CHEK COMFORT CURVE STRIP VI SCH ×4 (00:49→17:35)
[2020-10-29] MEDS: InsuLIN REG 1unit/0.01ml Soln (100units/ml) SC SCH ×4 (00:50→17:30)
[2020-10-29] MEDS: MIDAZOLAM DRIP 50 mg/50mL 50 ML IV SCH ×2 (00:52→20:57)
[2020-10-29] MEDS: PROPOFOL 100 ML IV SCH ×6 (00:58→21:07)
[2020-10-29] MEDS: ALBUTEROL SULF 2.5 MG/0.5ML(0.5%) NEB SOLN NEB SCH ×7 (02:04→22:11)
[2020-10-29] MEDS: PHENYLEPHRINE IV 250 ML IV SCH ×5 (03:15→20:13)
[2020-10-29 05:17] LABS: Potassium 3.4 mmol/L (3.5-5.1)
[2020-10-29 05:26] LABS: Albumin 1.6 g/dL (3.4-5.0); BUN/Creatinine Ratio 46.8; Bilirubin, Total 0.2 mg/dL (0.2-1.0); Calcium 7.8 mg/dL (8.5-10.1); Magnesium 2.3 mg/dL (1.6-2.6); Total Protein 5.9 g/dL (6.4-8.2)
[2020-10-29] MEDS: fentaNYL Drip 2500mCg/250mlNS 250 ML IV SCH (08:47)
[2020-10-29] MEDS: NOREPINEPHRINE 8 MG/250ML KIT 250 ML IV SCH (09:00)
[2020-10-29] MEDS ORDERED: POTASSIUM CHL 20MEQ/100ML 100 ML IV ONE (11:00)
[2020-10-29] MEDS: PANTOPRAZOLE 40 MG/10 ML VIAL INJ IV SCH (11:17)
[2020-10-29] MEDS: CEFTRIAXONE SODIUM 2 GM in D5W 5% 50 ML IV SCH (11:17)
[2020-10-29] MEDS: INSULIN LANTUS (GLARGINE) 1 /0.01ml (100units/ml) SC SCH (11:18)
[2020-10-29] MEDS: ENOXAPARIN SOD 40 MG/0.4 ML SYRINGE SC SCH (11:19)
[2020-10-29] MEDS: NYSTATIN TOPICAL POWDER 15GM TOP SCH ×2 (11:19→22:26)
[2020-10-29] MEDS ORDERED: VANCOMYCIN PER PHARMACY 0 MG IV SCH (18:00)
[2020-10-29] MEDS ORDERED: VANCOMYCIN 1GM/250ML 250 ML IV ONE (18:30)
[2020-10-29] MEDS ORDERED: FUROSEMIDE 40 MG/4 ML VIAL IV ONE (18:30)
[2020-10-29] MEDS: ACETAMINOPHEN 650 mg PER 20.3 mL UD GT PRN (19:00)
[2020-10-29] MEDS: TPN PER PHARMACY IV NR ×10 (20:08)
[2020-10-29] MEDS ORDERED: LINEZOLID 600MG/300ML 300 ML IV SCH (22:00)
[2020-10-30] VITALS (99 sets, daily range): BP systolic 86–186; BP diastolic 32–110
[2020-10-30] MEDS: ACCU-CHEK COMFORT CURVE STRIP VI SCH ×4 (00:41→18:17)
[2020-10-30] MEDS: InsuLIN REG 1unit/0.01ml Soln (100units/ml) SC SCH ×4 (00:42→17:59)
[2020-10-30] MEDS: PROPOFOL 100 ML IV SCH ×3 (00:44→22:25)
[2020-10-30] MEDS: fentaNYL Drip 2500mCg/250mlNS 250 ML IV SCH (01:03)
[2020-10-30] MEDS: ALBUTEROL SULF 2.5 MG/0.5ML(0.5%) NEB SOLN NEB SCH ×7 (02:03→21:59)
[2020-10-30] MEDS: PHENYLEPHRINE IV 250 ML IV SCH ×3 (04:15→20:55)
[2020-10-30 04:40] LABS: Basophils # (auto) 0.1 10 ^3/uL (0-0.2); Eosinophils # (auto) 0.4 10 ^3/uL (0-0.8); Lymphocytes # (auto) 1.9 10 ^3/uL (0.4-5.4); Monocytes # (auto) 0.9 10 ^3/uL (0-1.3)
[2020-10-30 04:42] LABS: Basophils % (auto) 1.1 % (0.0-2.0); Eosinophils % (auto) 5.2 % (0.0-7.0); Hemoglobin 8.8 g/dL (12.2-16.2); Lymphocytes % (auto) 23.9 % (10.0-50.0); Mean Corpuscular Hemoglobin 25.9 pg (28.0-32.0); Mean Corpuscular Hgb Conc. 32.5 g/dL (32.0-36.0); Mean Corpuscular Volume 79.6 fL (80.0-100.0); Monocytes % (auto) 10.9 % (0.0-12.0); Neutrophils # (auto) 4.7 10 ^3/uL (1.6-8.6); Neutrophils % (auto) 58.9 % (37.0-80.0); Nucleated Red Blood Cells % 0.1 %; Red Blood Cells 3.39 10^6/uL (4.0-5.20); Red Cell Distribution Width 17.3 % (11.8-14.3)
[2020-10-30] MEDS: SOD CHL 0.45% 1,000 ML IV SCH ×2 (04:52→09:52)
[2020-10-30] MEDS: VANCOMYCIN 1GM/250ML 250 ML IV SCH ×2 (04:52→14:00)
[2020-10-30 05:04] LABS: Albumin 1.8 g/dL (3.4-5.0); BUN/Creatinine Ratio 48.1; Calcium 7.8 mg/dL (8.5-10.1); Magnesium 2.2 mg/dL (1.6-2.6)
[2020-10-30 05:08] LABS: Bilirubin, Total 0.2 mg/dL (0.2-1.0); Phosphorus 3.3 mg/dL (2.5-4.90); Total Protein 6.4 g/dL (6.4-8.2)
[2020-10-30] MEDS: hydrALAZINE HCL 20 MG/ML VL IV PRN (05:14)
[2020-10-30] MEDS: NOREPINEPHRINE 8 MG/250ML KIT 250 ML IV SCH (09:00)
[2020-10-30] MEDS: PANTOPRAZOLE 40 MG/10 ML VIAL INJ IV SCH (09:18)
[2020-10-30] MEDS: CEFTRIAXONE SODIUM 2 GM in D5W 5% 50 ML IV SCH (09:18)
[2020-10-30] MEDS: INSULIN LANTUS (GLARGINE) 1 /0.01ml (100units/ml) SC SCH (09:19)
[2020-10-30] MEDS: ENOXAPARIN SOD 40 MG/0.4 ML SYRINGE SC SCH (09:22)
[2020-10-30] MEDS: NYSTATIN TOPICAL POWDER 15GM TOP SCH ×2 (09:31→22:24)
[2020-10-30] MEDS ORDERED: TPN PER PHARMACY IV NR ×10 (20:00)
[2020-10-30] MEDS: TPN PER PHARMACY IV NR ×10 (20:03)
[2020-10-31] VITALS (95 sets, daily range): BP systolic 79–188; BP diastolic 33–100
[2020-10-31] MEDS: ACCU-CHEK COMFORT CURVE STRIP VI SCH ×4 (00:04→18:20)
[2020-10-31] MEDS: InsuLIN REG 1unit/0.01ml Soln (100units/ml) SC SCH ×4 (00:06→18:21)
[2020-10-31] MEDS: VANCOMYCIN 1GM/250ML 250 ML IV SCH ×2 (00:44→12:36)
[2020-10-31] MEDS: fentaNYL Drip 2500mCg/250mlNS 250 ML IV SCH ×2 (00:48→17:00)
[2020-10-31] MEDS: ALBUTEROL SULF 2.5 MG/0.5ML(0.5%) NEB SOLN NEB SCH ×4 (02:06→22:14)
[2020-10-31] MEDS: LORazepam 2MG/ML-1ML VIAL IV PRN ×2 (03:53→05:53)
[2020-10-31 04:47] LABS: Basophils # (auto) 0.1 10 ^3/uL (0-0.2); Eosinophils # (auto) 0.4 10 ^3/uL (0-0.8); Hemoglobin 7.8 g/dL (12.2-16.2); Lymphocytes # (auto) 1.6 10 ^3/uL (0.4-5.4); White Blood Cell 8.3 10^3/uL (4.4-10.8)
[2020-10-31 04:53] LABS: Basophils % (auto) 0.7 % (0.0-2.0); Eosinophils % (auto) 5.3 % (0.0-7.0); Hematocrit 23.4 % (36.0-46.0); Lymphocytes % (auto) 19.8 % (10.0-50.0); Mean Corpuscular Hemoglobin 26.4 pg (28.0-32.0); Mean Corpuscular Hgb Conc. 33.2 g/dL (32.0-36.0); Mean Corpuscular Volume 79.4 fL (80.0-100.0); Monocytes # (auto) 0.7 10 ^3/uL (0-1.3); Monocytes % (auto) 8.4 % (0.0-12.0); Neutrophils # (auto) 5.4 10 ^3/uL (1.6-8.6); Neutrophils % (auto) 65.8 % (37.0-80.0); Red Blood Cells 2.94 10^6/uL (4.0-5.20); Red Cell Distribution Width 17.7 % (11.8-14.3)
[2020-10-31] MEDS: PHENYLEPHRINE IV 250 ML IV SCH ×3 (05:05→21:55)
[2020-10-31 05:28] LABS: Albumin 1.7 g/dL (3.4-5.0); Calcium 7.8 mg/dL (8.5-10.1); Magnesium 2.1 mg/dL (1.6-2.6)
[2020-10-31 05:33] LABS: Bilirubin, Total 0.2 mg/dL (0.2-1.0); Phosphorus 2.7 mg/dL (2.5-4.90)
[2020-10-31] MEDS: NOREPINEPHRINE 8 MG/250ML KIT 250 ML IV SCH (09:00)
[2020-10-31] MEDS: SOD CHL 0.45% 1,000 ML IV SCH (09:11)
[2020-10-31] MEDS: PROPOFOL 100 ML IV SCH ×2 (09:36→15:24)
[2020-10-31] MEDS: CEFTRIAXONE SODIUM 2 GM in D5W 5% 50 ML IV SCH (09:50)
[2020-10-31] MEDS: PANTOPRAZOLE 40 MG/10 ML VIAL INJ IV SCH (09:53)
[2020-10-31] MEDS: ENOXAPARIN SOD 40 MG/0.4 ML SYRINGE SC SCH (09:53)
[2020-10-31] MEDS: FLUCONAZOLE 200MG/100ML 100 ML IV SCH (09:53)
[2020-10-31] MEDS: NYSTATIN TOPICAL POWDER 15GM TOP SCH ×2 (10:00→22:00)
[2020-10-31] MEDS: INSULIN LANTUS (GLARGINE) 1 /0.01ml (100units/ml) SC SCH (10:14)
[2020-10-31] MEDS: SODIUM FERR GLUC 125 MG in NS 100 ML IV SCH (13:32)
[2020-10-31] MEDS: MIDAZOLAM DRIP 50 mg/50mL 50 ML IV SCH (15:45)
[2020-10-31] MEDS ORDERED: TPN PER PHARMACY IV NR ×11 (20:00)
[2020-11-01] VITALS (107 sets, daily range): BP systolic 81–170; BP diastolic 40–88
[2020-11-01] MEDS: VANCOMYCIN 1GM/250ML 250 ML IV SCH ×2 (00:25→11:47)
[2020-11-01] MEDS: ACCU-CHEK COMFORT CURVE STRIP VI SCH ×5 (00:25→23:25)
[2020-11-01] MEDS: InsuLIN REG 1unit/0.01ml Soln (100units/ml) SC SCH ×5 (00:28→23:25)
[2020-11-01] MEDS: ALBUTEROL SULF 2.5 MG/0.5ML(0.5%) NEB SOLN NEB SCH ×6 (01:59→23:01)
[2020-11-01 04:15] LABS: Albumin 1.7 g/dL (3.4-5.0); BUN/Creatinine Ratio 56.4; Calcium 8.1 mg/dL (8.5-10.1); Potassium 3.9 mmol/L (3.5-5.1)
[2020-11-01 04:18] LABS: Bilirubin, Total 0.1 mg/dL (0.2-1.0); Phosphorus 3.7 mg/dL (2.5-4.90)
[2020-11-01] MEDS: PHENYLEPHRINE IV 250 ML IV SCH (06:04)
[2020-11-01] MEDS: fentaNYL Drip 2500mCg/250mlNS 250 ML IV SCH ×2 (06:56→20:20)
[2020-11-01] MEDS: NOREPINEPHRINE 8 MG/250ML KIT 250 ML IV SCH (09:00)
[2020-11-01] MEDS: FLUCONAZOLE 200MG/100ML 100 ML IV SCH (09:08)
[2020-11-01] MEDS: SOD CHL 0.45% 1,000 ML IV SCH (09:39)
[2020-11-01] MEDS: ENOXAPARIN SOD 40 MG/0.4 ML SYRINGE SC SCH (09:40)
[2020-11-01] MEDS: PANTOPRAZOLE 40 MG/10 ML VIAL INJ IV SCH (09:40)
[2020-11-01] MEDS: NYSTATIN TOPICAL POWDER 15GM TOP SCH ×2 (09:41→22:06)
[2020-11-01] MEDS: INSULIN LANTUS (GLARGINE) 1 /0.01ml (100units/ml) SC SCH (09:50)
[2020-11-01] MEDS: CEFTRIAXONE SODIUM 2 GM in D5W 5% 50 ML IV SCH (10:13)
[2020-11-01] MEDS: PROPOFOL 100 ML IV SCH ×3 (11:59→18:45)
[2020-11-01] MEDS ORDERED: IRON SUCROSE COMPLEX 200 MG in SODIUM CHL 0.9% 100 ML IV SCH (12:00)
[2020-11-01] MEDS: SODIUM FERR GLUC 125 MG in NS 100 ML IV SCH (12:03)
[2020-11-01] MEDS: MIDAZOLAM DRIP 50 mg/50mL 50 ML IV SCH (15:45)
[2020-11-01] MEDS ORDERED: TPN PER PHARMACY IV NR ×9 (20:00)
[2020-11-02] VITALS (103 sets, daily range): BP systolic 89–192; BP diastolic 33–106
[2020-11-02] MEDS: PROPOFOL 100 ML IV SCH ×6 (01:11→21:08)
[2020-11-02] MEDS: ALBUTEROL SULF 2.5 MG/0.5ML(0.5%) NEB SOLN NEB SCH ×6 (02:39→22:40)
[2020-11-02] MEDS ORDERED: VANCOMYCIN 1GM/250ML 250 ML IV SCH (03:00)
[2020-11-02 04:52] LABS: Basophils # (auto) 0 10 ^3/uL (0-0.2); Basophils % (auto) 0.2 % (0.0-2.0); Eosinophils # (auto) 0.6 10 ^3/uL (0-0.8); Eosinophils % (auto) 7.1 % (0.0-7.0); Hematocrit 24.8 % (36.0-46.0); Hemoglobin 8.3 g/dL (12.2-16.2); Lymphocytes # (auto) 1.6 10 ^3/uL (0.4-5.4); Lymphocytes % (auto) 19.9 % (10.0-50.0); Mean Corpuscular Hemoglobin 26.7 pg (28.0-32.0); Mean Corpuscular Hgb Conc. 33.5 g/dL (32.0-36.0); Mean Corpuscular Volume 79.7 fL (80.0-100.0); Monocytes # (auto) 0.8 10 ^3/uL (0-1.3); Neutrophils # (auto) 4.9 10 ^3/uL (1.6-8.6); Neutrophils % (auto) 62.8 % (37.0-80.0); Nucleated Red Blood Cells % 0.1 %; Red Blood Cells 3.11 10^6/uL (4.0-5.20); White Blood Cell 7.9 10^3/uL (4.4-10.8)
[2020-11-02 04:57] LABS: Potassium 4.5 mmol/L (3.5-5.1)
[2020-11-02 05:09] LABS: Albumin 1.8 g/dL (3.4-5.0); Bilirubin, Total 0.2 mg/dL (0.2-1.0); Magnesium 1.9 mg/dL (1.6-2.6); Phosphorus 4.2 mg/dL (2.5-4.90); Total Protein 6.4 g/dL (6.4-8.2)
[2020-11-02] MEDS: InsuLIN REG 1unit/0.01ml Soln (100units/ml) SC SCH ×4 (05:41→23:55)
[2020-11-02] MEDS: ACCU-CHEK COMFORT CURVE STRIP VI SCH ×4 (05:41→23:55)
[2020-11-02] MEDS: ACETAMINOPHEN 650 mg PER 20.3 mL UD GT PRN (07:51)
[2020-11-02] MEDS: fentaNYL Drip 2500mCg/250mlNS 250 ML IV SCH ×2 (08:37→21:07)
[2020-11-02] MEDS: FLUCONAZOLE 200MG/100ML 100 ML IV SCH (08:46)
[2020-11-02] MEDS: MIDAZOLAM DRIP 50 mg/50mL 50 ML IV SCH ×4 (08:52→21:06)
[2020-11-02] MEDS: SOD CHL 0.45% 1,000 ML IV SCH (09:30)
[2020-11-02] MEDS: ENOXAPARIN SOD 40 MG/0.4 ML SYRINGE SC SCH (09:40)
[2020-11-02] MEDS: NYSTATIN TOPICAL POWDER 15GM TOP SCH ×2 (09:40→20:27)
[2020-11-02] MEDS: CEFTRIAXONE SODIUM 2 GM in D5W 5% 50 ML IV SCH (09:40)
[2020-11-02] MEDS: PANTOPRAZOLE 40 MG/10 ML VIAL INJ IV SCH (09:40)
[2020-11-02] MEDS: INSULIN LANTUS (GLARGINE) 1 /0.01ml (100units/ml) SC SCH (10:15)
[2020-11-02] MEDS: SODIUM FERR GLUC 125 MG in NS 100 ML IV SCH (11:16)
[2020-11-02] MEDS ORDERED: TPN PER PHARMACY IV NR ×10 (20:00)
[2020-11-03] VITALS (91 sets, daily range): BP systolic 82–189; BP diastolic 29–104
[2020-11-03] MEDS: MIDAZOLAM DRIP 50 mg/50mL 50 ML IV SCH ×2 (01:38→06:01)
[2020-11-03] MEDS: PROPOFOL 100 ML IV SCH ×2 (01:38→06:36)
[2020-11-03] MEDS: ALBUTEROL SULF 2.5 MG/0.5ML(0.5%) NEB SOLN NEB SCH ×6 (02:18→21:50)
[2020-11-03 04:28] LABS: Basophils # (auto) 0.1 10 ^3/uL (0-0.2); Basophils % (auto) 1.3 % (0.0-2.0); Eosinophils # (auto) 0.4 10 ^3/uL (0-0.8); Mean Corpuscular Hemoglobin 26.7 pg (28.0-32.0)
[2020-11-03 04:31] LABS: Eosinophils % (auto) 5.1 % (0.0-7.0); Hematocrit 22.5 % (36.0-46.0); Hemoglobin 7.5 g/dL (12.2-16.2); Lymphocytes # (auto) 1.7 10 ^3/uL (0.4-5.4); Lymphocytes % (auto) 20.8 % (10.0-50.0); Mean Corpuscular Hgb Conc. 33.3 g/dL (32.0-36.0); Monocytes # (auto) 0.7 10 ^3/uL (0-1.3); Monocytes % (auto) 8.4 % (0.0-12.0); Neutrophils # (auto) 5.3 10 ^3/uL (1.6-8.6); Neutrophils % (auto) 64.4 % (37.0-80.0); Nucleated Red Blood Cells % 0.1 %; Red Blood Cells 2.82 10^6/uL (4.0-5.20); Red Cell Distribution Width 18.5 % (11.8-14.3); White Blood Cell 8.2 10^3/uL (4.4-10.8)
[2020-11-03 04:50] LABS: Albumin 1.7 g/dL (3.4-5.0); Potassium 4.1 mmol/L (3.5-5.1)
[2020-11-03 04:59] LABS: BUN/Creatinine Ratio 48.3; Bilirubin, Total 0.2 mg/dL (0.2-1.0); Calcium 7.9 mg/dL (8.5-10.1); Magnesium 2.3 mg/dL (1.6-2.6); Phosphorus 3.6 mg/dL (2.5-4.90); Pre Albumin 16.3 mg/dL (20.0-40.0); Total Protein 5.9 g/dL (6.4-8.2)
[2020-11-03] MEDS: ACCU-CHEK COMFORT CURVE STRIP VI SCH ×4 (05:59→23:33)
[2020-11-03] MEDS: InsuLIN REG 1unit/0.01ml Soln (100units/ml) SC SCH ×4 (05:59→23:35)
[2020-11-03] MEDS: fentaNYL Drip 2500mCg/250mlNS 250 ML IV SCH (08:41)
[2020-11-03] MEDS: SOD CHL 0.45% 1,000 ML IV SCH (09:30)
[2020-11-03] MEDS: PANTOPRAZOLE 40 MG/10 ML VIAL INJ IV SCH (10:37)
[2020-11-03] MEDS: INSULIN LANTUS (GLARGINE) 1 /0.01ml (100units/ml) SC SCH (10:38)
[2020-11-03] MEDS: ENOXAPARIN SOD 40 MG/0.4 ML SYRINGE SC SCH (10:38)
[2020-11-03] MEDS: NYSTATIN TOPICAL POWDER 15GM TOP SCH ×2 (10:38→21:28)
[2020-11-03] MEDS: CEFTRIAXONE SODIUM 2 GM in D5W 5% 50 ML IV SCH (10:38)
[2020-11-03] MEDS: hydrALAZINE HCL 20 MG/ML VL IV PRN (11:18)
[2020-11-03] MEDS: SODIUM FERR GLUC 125 MG in NS 100 ML IV SCH ×2 (11:34→11:41)
[2020-11-03] MEDS: ACETAMINOPHEN 650 mg PER 20.3 mL UD GT PRN (13:28)
[2020-11-03] MEDS ORDERED: hydrALAZINE HCL 20 MG/ML VL IV ONE (16:45)
[2020-11-03] MEDS: LORazepam 2MG/ML-1ML VIAL IV PRN ×3 (17:22→23:48)
[2020-11-03] MEDS ORDERED: ROCURONIUM 10MG/ML 10ML VIAL IV ONE (18:04)
[2020-11-03] MEDS ORDERED: ETOMIDATE (2MG/ML) 20ML VIAL IV ONE ×2 (18:04→18:05)
[2020-11-03] MEDS: TPN PER PHARMACY IV NR ×10 (20:19)
[2020-11-03] MEDS ORDERED: MORPHINE SULF INJ 2 MG/ML SYRINGE 1ML ONE (21:10)
[2020-11-03] MEDS ORDERED: LORazepam 2MG/ML-1ML VIAL ONE (21:30)
[2020-11-03] MEDS: MORPHINE SULF INJ 2 MG/ML SYRINGE 1ML IV PRN ×2 (21:40→22:43)
[2020-11-04] VITALS (30 sets, daily range): BP systolic 105–181; BP diastolic 52–91
[2020-11-04] MEDS: MORPHINE SULF INJ 2 MG/ML SYRINGE 1ML IV PRN ×11 (00:43→23:16)
[2020-11-04] MEDS: LORazepam 2MG/ML-1ML VIAL IV PRN ×9 (01:51→22:42)
[2020-11-04] MEDS: ALBUTEROL SULF 2.5 MG/0.5ML(0.5%) NEB SOLN NEB SCH ×5 (02:00→22:39)
[2020-11-04] MEDS: ACCU-CHEK COMFORT CURVE STRIP VI SCH ×3 (05:55→18:00)
[2020-11-04] MEDS: InsuLIN REG 1unit/0.01ml Soln (100units/ml) SC SCH ×3 (05:55→18:00)
[2020-11-04] MEDS: hydrALAZINE HCL 20 MG/ML VL IV PRN ×2 (06:06→15:29)
[2020-11-04] MEDS: MIDAZOLAM DRIP 50 mg/50mL 50 ML IV SCH (08:45)
[2020-11-04] MEDS: SOD CHL 0.45% 1,000 ML IV SCH ×2 (09:30→22:53)
[2020-11-04] MEDS: ENOXAPARIN SOD 40 MG/0.4 ML SYRINGE SC SCH (10:00)
[2020-11-04] MEDS: PANTOPRAZOLE 40 MG/10 ML VIAL INJ IV SCH (10:00)
[2020-11-04] MEDS: NYSTATIN TOPICAL POWDER 15GM TOP SCH ×2 (10:00→22:03)
[2020-11-04] MEDS: CEFTRIAXONE SODIUM 2 GM in D5W 5% 50 ML IV SCH (10:00)
[2020-11-04] MEDS: INSULIN LANTUS (GLARGINE) 1 /0.01ml (100units/ml) SC SCH (10:00)
[2020-11-04 12:45] LABS: Albumin 2.1 g/dL (3.4-5.0); Calcium 8.3 mg/dL (8.5-10.1); Magnesium 1.8 mg/dL (1.6-2.6); Potassium 3.5 mmol/L (3.5-5.1)
[2020-11-04] MEDS: PROPOFOL 100 ML IV SCH (12:45)
[2020-11-04 12:49] LABS: BUN/Creatinine Ratio 40.9; Bilirubin, Total 0.3 mg/dL (0.2-1.0); Phosphorus 2.2 mg/dL (2.5-4.90); Total Protein 7.4 g/dL (6.4-8.2)
[2020-11-04 12:50] LABS: Basophils # (auto) 0.1 10 ^3/uL (0-0.2); Monocytes # (auto) 0.8 10 ^3/uL (0-1.3)
[2020-11-04 12:53] LABS: Eosinophils # (auto) 0.8 10 ^3/uL (0-0.8); Eosinophils % (auto) 7.4 % (0.0-7.0); Hematocrit 28.3 % (36.0-46.0); Hemoglobin 9.3 g/dL (12.2-16.2); Lymphocytes # (auto) 1.8 10 ^3/uL (0.4-5.4); Lymphocytes % (auto) 17.6 % (10.0-50.0); Mean Corpuscular Hemoglobin 26.7 pg (28.0-32.0); Mean Corpuscular Hgb Conc. 33.1 g/dL (32.0-36.0); Mean Corpuscular Volume 80.6 fL (80.0-100.0); Neutrophils # (auto) 6.8 10 ^3/uL (1.6-8.6); Nucleated Red Blood Cells % 0.1 %; Red Blood Cells 3.51 10^6/uL (4.0-5.20); Red Cell Distribution Width 18.4 % (11.8-14.3); White Blood Cell 10.3 10^3/uL (4.4-10.8)
[2020-11-04] MEDS: ACETAMINOPHEN 650 mg PER 20.3 mL UD GT PRN (18:35)
[2020-11-04] MEDS: TPN PER PHARMACY IV NR ×10 (19:49)
[2020-11-04] MEDS ORDERED: TPN PER PHARMACY IV NR ×11 (20:00)
[2020-11-04] MEDS: fentaNYL Drip 2500mCg/250mlNS 250 ML IV SCH (20:30)
[2020-11-05] VITALS (23 sets, daily range): BP systolic 142–183; BP diastolic 68–95
[2020-11-05] MEDS: hydrALAZINE HCL 20 MG/ML VL IV PRN (00:04)
[2020-11-05] MEDS: ACCU-CHEK COMFORT CURVE STRIP VI SCH ×5 (00:07→23:56)
[2020-11-05] MEDS: InsuLIN REG 1unit/0.01ml Soln (100units/ml) SC SCH ×4 (00:17→18:00)
[2020-11-05] MEDS: MORPHINE SULF INJ 2 MG/ML SYRINGE 1ML IV PRN ×4 (01:20→22:34)
[2020-11-05] MEDS: ACETAMINOPHEN 650 mg PER 20.3 mL UD GT PRN ×2 (02:13→20:09)
[2020-11-05] MEDS: ALBUTEROL SULF 2.5 MG/0.5ML(0.5%) NEB SOLN NEB SCH ×6 (02:49→22:11)
[2020-11-05 05:15] LABS: Albumin 2.2 g/dL (3.4-5.0); Calcium 8.2 mg/dL (8.5-10.1); Magnesium 1.8 mg/dL (1.6-2.6); Potassium 3.6 mmol/L (3.5-5.1)
[2020-11-05 05:18] LABS: BUN/Creatinine Ratio 37.7; Bilirubin, Total 0.3 mg/dL (0.2-1.0); Phosphorus 2.3 mg/dL (2.5-4.90); Total Protein 7.3 g/dL (6.4-8.2)
[2020-11-05] MEDS: MIDAZOLAM DRIP 50 mg/50mL 50 ML IV SCH (08:45)
[2020-11-05] MEDS: PANTOPRAZOLE 40 MG/10 ML VIAL INJ IV SCH (10:44)
[2020-11-05] MEDS: CEFTRIAXONE SODIUM 2 GM in D5W 5% 50 ML IV SCH (11:07)
[2020-11-05] MEDS: NYSTATIN TOPICAL POWDER 15GM TOP SCH ×2 (11:08→22:34)
[2020-11-05] MEDS: ENOXAPARIN SOD 40 MG/0.4 ML SYRINGE SC SCH (11:08)
[2020-11-05] MEDS: INSULIN LANTUS (GLARGINE) 1 /0.01ml (100units/ml) SC SCH (11:08)
[2020-11-05] MEDS ORDERED: SODIUM PHOSPHATES 10 MEQ in SODIUM CHL 0.9% 100 ML IV ONE (12:30)
[2020-11-05] MEDS: PROPOFOL 100 ML IV SCH (14:54)
[2020-11-05] MEDS: LORazepam 2MG/ML-1ML VIAL IV PRN ×2 (19:22→22:35)
[2020-11-05] MEDS ORDERED: TPN PER PHARMACY IV NR ×11 (20:00)
[2020-11-06] VITALS (23 sets, daily range): BP systolic 128–172; BP diastolic 57–94
[2020-11-06] MEDS: ALBUTEROL SULF 2.5 MG/0.5ML(0.5%) NEB SOLN NEB SCH ×6 (02:05→22:10)
[2020-11-06] MEDS: ACETAMINOPHEN 650 mg PER 20.3 mL UD GT PRN ×3 (02:08→12:06)
[2020-11-06 04:50] LABS: Potassium 3.5 mmol/L (3.5-5.1)
[2020-11-06 04:54] LABS: Albumin 2.4 g/dL (3.4-5.0); Calcium 8.3 mg/dL (8.5-10.1)
[2020-11-06 04:57] LABS: Bilirubin, Total 0.3 mg/dL (0.2-1.0); Total Protein 7.3 g/dL (6.4-8.2)
[2020-11-06] MEDS: InsuLIN REG 1unit/0.01ml Soln (100units/ml) SC SCH ×4 (05:33→18:08)
[2020-11-06] MEDS: ACCU-CHEK COMFORT CURVE STRIP VI SCH ×3 (05:33→18:07)
[2020-11-06 06:06] LABS: RPR Non Reactive (Non Reactive)
[2020-11-06] MEDS: MIDAZOLAM DRIP 50 mg/50mL 50 ML IV SCH (08:45)
[2020-11-06] MEDS: PANTOPRAZOLE 40 MG/10 ML VIAL INJ IV SCH (09:13)
[2020-11-06] MEDS: CEFTRIAXONE SODIUM 2 GM in D5W 5% 50 ML IV SCH (09:14)
[2020-11-06] MEDS: ENOXAPARIN SOD 40 MG/0.4 ML SYRINGE SC SCH (09:14)
[2020-11-06] MEDS: NYSTATIN TOPICAL POWDER 15GM TOP SCH ×2 (09:14→22:05)
[2020-11-06] MEDS: INSULIN LANTUS (GLARGINE) 1 /0.01ml (100units/ml) SC SCH (09:15)
[2020-11-06] MEDS: SOD CHL 0.45% 1,000 ML IV SCH ×2 (09:30→20:00)
[2020-11-06] MEDS: MORPHINE SULF INJ 2 MG/ML SYRINGE 1ML IV PRN ×2 (10:24→22:24)
[2020-11-06] MEDS: PROPOFOL 100 ML IV SCH (12:45)
[2020-11-06] MEDS ORDERED: TPN PER PHARMACY IV NR ×11 (20:00)
[2020-11-06] MEDS: LORazepam 2MG/ML-1ML VIAL IV PRN (22:24)
[2020-11-07] VITALS (42 sets, daily range): BP systolic 137–194; BP diastolic 42–144
[2020-11-07] MEDS: ACCU-CHEK COMFORT CURVE STRIP VI SCH ×4 (00:48→18:06)
[2020-11-07] MEDS: ALBUTEROL SULF 2.5 MG/0.5ML(0.5%) NEB SOLN NEB SCH ×6 (02:27→22:00)
[2020-11-07] MEDS: InsuLIN REG 1unit/0.01ml Soln (100units/ml) SC SCH ×4 (05:36→18:00)
[2020-11-07] MEDS: hydrALAZINE HCL 20 MG/ML VL IV PRN (06:04)
[2020-11-07 07:15] LABS: Albumin 2.3 g/dL (3.4-5.0); Calcium 8.4 mg/dL (8.5-10.1); Magnesium 2.2 mg/dL (1.6-2.6); Potassium 3.2 mmol/L (3.5-5.1)
[2020-11-07 07:19] LABS: BUN/Creatinine Ratio 46.2; Bilirubin, Total 0.3 mg/dL (0.2-1.0); Phosphorus 2.9 mg/dL (2.5-4.90); Total Protein 7.1 g/dL (6.4-8.2)
[2020-11-07] MEDS: fentaNYL Drip 2500mCg/250mlNS 250 ML IV SCH (07:20)
[2020-11-07] MEDS: MIDAZOLAM DRIP 50 mg/50mL 50 ML IV SCH (07:21)
[2020-11-07] MEDS: PROPOFOL 100 ML IV SCH (07:22)
[2020-11-07] MEDS: LORazepam 2MG/ML-1ML VIAL IV PRN (08:20)
[2020-11-07] MEDS: MORPHINE SULF INJ 2 MG/ML SYRINGE 1ML IV PRN (08:21)
[2020-11-07] MEDS: NYSTATIN TOPICAL POWDER 15GM TOP SCH ×2 (09:12→22:00)
[2020-11-07] MEDS: PANTOPRAZOLE 40 MG/10 ML VIAL INJ IV SCH (09:12)
[2020-11-07] MEDS: ENOXAPARIN SOD 40 MG/0.4 ML SYRINGE SC SCH (09:12)
[2020-11-07] MEDS: POTASSIUM CHL 20MEQ/100ML 100 ML IV SCH ×2 (09:57→11:32)
[2020-11-07] MEDS ORDERED: OXYCODONE W/ ACETAMINOPHEN 5/325MG TABLET PO PRN (10:45)
[2020-11-07] MEDS: INSULIN LANTUS (GLARGINE) 1 /0.01ml (100units/ml) SC SCH (10:55)
[2020-11-07] MEDS: amLODIPine BESYLATE 5 MG TAB PO SCH (14:31)
[2020-11-07 14:45] LABS: Basophils # (auto) 0.1 10 ^3/uL (0-0.2); Eosinophils # (auto) 0.5 10 ^3/uL (0-0.8); Eosinophils % (auto) 4.7 % (0.0-7.0); Monocytes % (auto) 10.3 % (0.0-12.0); Neutrophils # (auto) 5.1 10 ^3/uL (1.6-8.6)
[2020-11-07 14:47] LABS: Basophils % (auto) 1.4 % (0.0-2.0); Hematocrit 30.1 % (36.0-46.0); Hemoglobin 10.4 g/dL (12.2-16.2); Mean Corpuscular Hemoglobin 28.2 pg (28.0-32.0); Mean Corpuscular Hgb Conc. 34.6 g/dL (32.0-36.0); Mean Corpuscular Volume 81.5 fL (80.0-100.0); Neutrophils % (auto) 52.6 % (37.0-80.0); Nucleated Red Blood Cells % 0.1 %; Red Blood Cells 3.69 10^6/uL (4.0-5.20); White Blood Cell 9.8 10^3/uL (4.4-10.8)
[2020-11-07 14:58] LABS: Red Cell Distribution Width 20.3 % (11.8-14.3)
[2020-11-07] MEDS ORDERED: TPN PER PHARMACY IV NR ×11 (20:00)
[2020-11-08] MEDS: MORPHINE SULF INJ 2 MG/ML SYRINGE 1ML IV PRN (02:19)
[2020-11-08] MEDS: ALBUTEROL SULF 2.5 MG/0.5ML(0.5%) NEB SOLN NEB SCH ×6 (02:29→22:42)
[2020-11-08 05:00] VITALS: BP 164/87
[2020-11-08] MEDS: ACCU-CHEK COMFORT CURVE STRIP VI SCH ×4 (06:00→18:20)
[2020-11-08] MEDS: InsuLIN REG 1unit/0.01ml Soln (100units/ml) SC SCH ×4 (06:00→18:22)
[2020-11-08 06:41] LABS: Mean Corpuscular Hgb Conc. 32.9 g/dL (32.0-36.0); Red Blood Cells 3.73 10^6/uL (4.0-5.20); White Blood Cell 9.6 10^3/uL (4.4-10.8)
[2020-11-08 06:42] LABS: Basophils # (auto) 0.2 10 ^3/uL (0-0.2); Basophils % (auto) 1.6 % (0.0-2.0); Eosinophils # (auto) 0.8 10 ^3/uL (0-0.8); Eosinophils % (auto) 8.1 % (0.0-7.0); Hematocrit 30.3 % (36.0-46.0); Lymphocytes # (auto) 2.7 10 ^3/uL (0.4-5.4); Lymphocytes % (auto) 28.1 % (10.0-50.0); Mean Corpuscular Hemoglobin 26.7 pg (28.0-32.0); Mean Corpuscular Volume 81.3 fL (80.0-100.0); Neutrophils % (auto) 52.2 % (37.0-80.0); Nucleated Red Blood Cells % 0.2 %
[2020-11-08 07:18] LABS: Albumin 2.6 g/dL (3.4-5.0); Calcium 7.8 mg/dL (8.5-10.1); Potassium 3.4 mmol/L (3.5-5.1)
[2020-11-08 07:30] LABS: BUN/Creatinine Ratio 52.6; Bilirubin, Total 0.3 mg/dL (0.2-1.0); Total Protein 6.5 g/dL (6.4-8.2)
[2020-11-08] MEDS ORDERED: oxyCODONE HCL 5MG TAB PO PRN (09:15)
[2020-11-08] MEDS ORDERED: POTASSIUM CHL 20MEQ/100ML 100 ML IV ONE ×2 (09:15→09:30)
[2020-11-08] MEDS: PANTOPRAZOLE 40 MG/10 ML VIAL INJ IV SCH (09:52)
[2020-11-08] MEDS: amLODIPine BESYLATE 5 MG TAB PO SCH ×2 (09:53→16:07)
[2020-11-08] MEDS: ENOXAPARIN SOD 40 MG/0.4 ML SYRINGE SC SCH (09:53)
[2020-11-08] MEDS: NYSTATIN TOPICAL POWDER 15GM TOP SCH ×2 (12:05→21:14)
[2020-11-08] MEDS: SOD CHL 0.45% 1,000 ML IV SCH (12:13)
[2020-11-08] MEDS: LISINOPRIL 20 MG TAB PO SCH (16:06)
[2020-11-08 17:00] VITALS: BP 141/86
[2020-11-08] MEDS ORDERED: TPN PER PHARMACY IV NR ×12 (20:00)
[2020-11-08 22:00] VITALS: BP 147/91
[2020-11-09] MEDS ORDERED: HALOPERIDOL LACTATE 5 MG/ML INJ VIAL IM PRN
[2020-11-09] MEDS: ACCU-CHEK COMFORT CURVE STRIP VI SCH ×3 (00:08→12:32)
[2020-11-09] MEDS: InsuLIN REG 1unit/0.01ml Soln (100units/ml) SC SCH ×3 (00:10→12:32)
[2020-11-09] MEDS: LORazepam 2MG/ML-1ML VIAL IV PRN ×2 (00:18→03:42)
[2020-11-09] MEDS: ALBUTEROL SULF 2.5 MG/0.5ML(0.5%) NEB SOLN NEB SCH ×3 (02:55→10:08)
[2020-11-09 05:00] VITALS: BP 118/71
[2020-11-09] MEDS: PANTOPRAZOLE 40 MG/10 ML VIAL INJ IV SCH (08:58)
[2020-11-09] MEDS: amLODIPine BESYLATE 5 MG TAB PO SCH (08:58)
[2020-11-09] MEDS: ENOXAPARIN SOD 40 MG/0.4 ML SYRINGE SC SCH (08:58)
[2020-11-09] MEDS: LISINOPRIL 20 MG TAB PO SCH (08:58)
[2020-11-09] MEDS: NYSTATIN TOPICAL POWDER 15GM TOP SCH (08:59)
[2020-11-09 09:00] VITALS: BP 110/56
[2020-11-09] MEDS: SOD CHL 0.45% 1,000 ML IV SCH (09:30)
[2020-11-09 13:00] VITALS: BP 124/56
[2020-11-09] MEDS ORDERED: ALBUTEROL SULF 2.5 MG/0.5ML(0.5%) NEB SOLN NEB PRN (13:15)
== END 2020-11-09 17:27 | DRG 637 ==
LOC: EDBD 06:29 → ER 06:29 → TELE 13:09 → ICU WEST 13:58 → DOU IN ICU 11-07 01:25 → TELE-WESTW 11-07 16:51
PROVIDERS: ADMIT Nurse Practitioner Acute Care; ATTEND Internal Medicine
PROC: 0BH17EZ Insertion of Endotracheal Airway into Trachea, Via Natural or Artificial Opening (ICD-10-PCS; principal; 2020-10-17)
PROC: 5A1955Z Respiratory Ventilation, Greater than 96 Consecutive Hours (ICD-10-PCS; 2020-10-17)
PROC: 02HV33Z Insertion of Infusion Device into Superior Vena Cava, Percutaneous Approach (ICD-10-PCS; 2020-10-17)
PROC: B548ZZA Ultrasonography of Superior Vena Cava, Guidance (ICD-10-PCS; 2020-10-17)
PROC: 00JU3ZZ Inspection of Spinal Canal, Percutaneous Approach (ICD-10-PCS; 2020-10-24)
PROC: 02HV33Z Insertion of Infusion Device into Superior Vena Cava, Percutaneous Approach (ICD-10-PCS; 2020-10-24)
PROC: B548ZZA Ultrasonography of Superior Vena Cava, Guidance (ICD-10-PCS; 2020-10-24)
PROC: B5181ZA Fluoroscopy of Superior Vena Cava using Low Osmolar Contrast, Guidance (ICD-10-PCS; 2020-10-24)
PROC: 009U3ZX Drainage of Spinal Canal, Percutaneous Approach, Diagnostic (ICD-10-PCS; 2020-10-25)
PROC: 5A09357 Assistance with Respiratory Ventilation, Less than 24 Consecutive Hours, Continuous Positive Airway Pressure (ICD-10-PCS; 2020-11-03)
PROC: 0BP1XDZ Removal of Intraluminal Device from Trachea, External Approach (ICD-10-PCS; 2020-11-03)
PROC: 5A1935Z Respiratory Ventilation, Less than 24 Consecutive Hours (ICD-10-PCS; 2020-11-04)
PROC: 5A09357 Assistance with Respiratory Ventilation, Less than 24 Consecutive Hours, Continuous Positive Airway Pressure (ICD-10-PCS; 2020-11-04)
DX: E11.10 Type 2 diabetes mellitus with ketoacidosis without coma (principal); G92 Toxic encephalopathy; E43 Unspecified severe protein-calorie malnutrition; J15.3 Pneumonia due to streptococcus, group B; J96.01 Acute respiratory failure with hypoxia; K85.90 Acute pancreatitis without necrosis or infection, unspecified; N17.0 Acute kidney failure with tubular necrosis; B79 Trichuriasis; N18.4 Chronic kidney disease, stage 4 (severe); N39.0 Urinary tract infection, site not specified; E87.2 Acidosis; J98.11 Atelectasis; Z20.822 Contact with and (suspected) exposure to COVID-19; Z51.5 Encounter for palliative care; B35.6 Tinea cruris; D64.9 Anemia, unspecified; E11.22 Type 2 diabetes mellitus with diabetic chronic kidney disease; E11.40 Type 2 diabetes mellitus with diabetic neuropathy, unspecified; I12.9 Hypertensive chronic kidney disease with stage 1 through stage 4 chronic kidney disease, or unspecified chronic kidney disease; E66.9 Obesity, unspecified; E78.5 Hyperlipidemia, unspecified; E86.0 Dehydration; E87.5 Hyperkalemia; F29 Unspecified psychosis not due to a substance or known physiological condition; Z68.33 Body mass index [BMI] 33.0-33.9, adult; Z75.1 Person awaiting admission to adequate facility elsewhere; Z79.899 Other long term (current) drug therapy; Z79.4 Long term (current) use of insulin; Z82.49 Family history of ischemic heart disease and other diseases of the circulatory system; Z83.3 Family history of diabetes mellitus; Z90.49 Acquired absence of other specified parts of digestive tract
CPT/HCPCS: 36415; 36600; 70450; 70551; 71045; 71250; 76856; 80048; 80053; 80061; 80076; 80202; 80307; 81001; 81025; 82010; 82040; 82270; 82805; 82945; 82962; 83036; 83605; 83690; 83735; 83930; 84100; 84112; 84132; 84157; 84443; 84478; 84484; 85007; 85025; 85027; 85049; 85610; 85730; 86592; 86850; 86900; 86901; 86920; 87040; 87070; 87077; 87081; 87086; 87088; 87177; 87205; 87426; 87529; 89051; 92507; 92610; 93005; 94002; 94003; 94640; 94660; 95819; 96361; 96365; 96366; 96367; 96375; 97110; 97163; 97530; 99291; C9113; G0378; J0696; J1450; J1815; J2248; J2250; J2704; J3480; J3490; J7060; J7131

== ENCOUNTER 2020-11-09 21:50 | Inpatient (IN) | payer BC ==
[~2020-11-09] VITALS: Ht 165.1 cm; Wt 78.6 kg
[~2020-11-09 21:50] MED LIST: GABA300C10 PO; INSREG3; INSU1INJ19 SC; LOSA-69 PO
[2020-11-10 01:18] LABS: Urine Bacteria FEW /hpf (None Seen); Urine Blood 2+ /uL (Negative); Urine Hyaline Cast FEW /lpf (0 - 2); Urine Mucus FEW (None Seen); Urine Specific Gravity 1.021 (1.001-1.035); Urine WBC 2 /hpf (0 - 5)
[2020-11-10] MEDS ORDERED: SODIUM CHLORIDE 0.9% 1,000 ML IV ONE (01:30)
[2020-11-10] MEDS ORDERED: InsuLIN REG 1unit/0.01ml Soln (100units/ml) IV ONE ×2 (01:45)
[2020-11-10 02:39] LABS: Basophils # (auto) 0.1 10 ^3/uL (0-0.2); Eosinophils # (auto) 0.4 10 ^3/uL (0-0.8); Eosinophils % (auto) 4.6 % (0.0-7.0); Mean Corpuscular Hemoglobin 27.6 pg (28.0-32.0); Monocytes # (auto) 0.7 10 ^3/uL (0-1.3); Neutrophils # (auto) 5.9 10 ^3/uL (1.6-8.6); Nucleated Red Blood Cells % 0.1 %
[2020-11-10 02:40] LABS: Hematocrit 36.3 % (36.0-46.0); Hemoglobin 11.4 g/dL (12.2-16.2); Lymphocytes # (auto) 1.8 10 ^3/uL (0.4-5.4); Lymphocytes % (auto) 20.5 % (10.0-50.0); Mean Corpuscular Hgb Conc. 31.5 g/dL (32.0-36.0); Mean Corpuscular Volume 87.6 fL (80.0-100.0); Monocytes % (auto) 8.2 % (0.0-12.0); Neutrophils % (auto) 65.7 % (37.0-80.0); Red Blood Cells 4.14 10^6/uL (4.0-5.20)
[2020-11-10 02:48] LABS: Red Cell Distribution Width 21.5 % (11.8-14.3)
[2020-11-10 02:56] LABS: INR 1.14 (0.9-1.15)
[2020-11-10 03:09] LABS: Albumin 3.2 g/dL (3.4-5.0); Calcium 8.9 mg/dL (8.5-10.1); Magnesium 2.1 mg/dL (1.6-2.6); Potassium 4.4 mmol/L (3.5-5.1)
[2020-11-10 03:15] LABS: BUN/Creatinine Ratio 30.2; Bilirubin, Total 0.6 mg/dL (0.2-1.0); Phosphorus 3.4 mg/dL (2.5-4.90); Total Protein 8.4 g/dL (6.4-8.2)
[2020-11-10] MEDS ORDERED: NITROGLYCERIN 0.4 MG SL TAB SL PRN (06:15)
[2020-11-10] MEDS ORDERED: ACETAMINOPHEN 325 MG TAB PO PRN (06:15)
[2020-11-10] MEDS ORDERED: MORPHINE SULF INJ 2 MG/ML SYRINGE 1ML IV PRN (06:15)
[2020-11-10] MEDS ORDERED: DOCUSATE SOD 100 MG CAP PO PRN (06:15)
[2020-11-10] MEDS ORDERED: TEMAZEPAM 15 MG CAP PO PRN (06:15)
[2020-11-10] MEDS ORDERED: DEXTROSE (50%) 50ML SYRG IV PRN (06:30)
[2020-11-10 07:41] LABS: Eosinophils # (auto) 0.2 10 ^3/uL (0-0.8); Monocytes # (auto) 0.9 10 ^3/uL (0-1.3); Neutrophils # (auto) 9.6 10 ^3/uL (1.6-8.6)
[2020-11-10 07:44] LABS: Basophils # (auto) 0.2 10 ^3/uL (0-0.2); Basophils % (auto) 1.3 % (0.0-2.0); Eosinophils % (auto) 1.4 % (0.0-7.0); Hematocrit 34.3 % (36.0-46.0); Hemoglobin 10.7 g/dL (12.2-16.2); Lymphocytes # (auto) 1.5 10 ^3/uL (0.4-5.4); Lymphocytes % (auto) 12.4 % (10.0-50.0); Mean Corpuscular Hemoglobin 27.4 pg (28.0-32.0); Mean Corpuscular Hgb Conc. 31.2 g/dL (32.0-36.0); Mean Corpuscular Volume 87.7 fL (80.0-100.0); Neutrophils % (auto) 77.9 % (37.0-80.0); Red Blood Cells 3.91 10^6/uL (4.0-5.20); White Blood Cell 12.3 10^3/uL (4.4-10.8)
[2020-11-10 07:48] LABS: Red Cell Distribution Width 21.8 % (11.8-14.3)
[2020-11-10 08:09] LABS: Albumin 2.8 g/dL (3.4-5.0); BUN/Creatinine Ratio 35.1; Bilirubin, Total 0.6 mg/dL (0.2-1.0); Calcium 8.8 mg/dL (8.5-10.1); Total Protein 7.4 g/dL (6.4-8.2)
[2020-11-10] MEDS: InsuLIN REG 1unit/0.01ml Soln (100units/ml) SC SCH ×4 (08:10→22:02)
[2020-11-10] MEDS: ACCU-CHEK COMFORT CURVE STRIP VI SCH ×4 (08:10→22:02)
[2020-11-10 09:27] VITALS: BP 134/51
[2020-11-10 09:28] VITALS: BP 134/51
[2020-11-10] MEDS: ENOXAPARIN SOD 40 MG/0.4 ML SYRINGE SC SCH (09:58)
[2020-11-10] MEDS: MULTIPLE VITAMIN TAB PO SCH (09:58)
[2020-11-10] MEDS: ASCORBIC ACID 500 MG TAB PO SCH ×2 (09:58→21:45)
[2020-11-10] MEDS: HYDROcodone-ACET 5/325MG TAB PO PRN (09:59)
[2020-11-10] MEDS: ZINC SULFATE 220mg CAP or TAB PO SCH (09:59)
[2020-11-10] MEDS ORDERED: FAMOTIDINE (10MG/ML) 2ML VL IV SCH (10:00)
[2020-11-10] MEDS: AZITHROMYCIN 500MG/ 250ML 250 ML IV SCH (11:22)
[2020-11-10] MEDS: ONDANSETRON HCL 4 MG/2 ML VIAL IV PRN (12:07)
[2020-11-10 13:00] VITALS: BP 116/66
[2020-11-10 17:00] VITALS: BP 141/68
[2020-11-10 23:47] VITALS: BP 144/70
[2020-11-11 05:00] VITALS: BP 131/74
[2020-11-11 05:33] LABS: Basophils # (auto) 0.1 10 ^3/uL (0-0.2); Eosinophils # (auto) 0.1 10 ^3/uL (0-0.8); Eosinophils % (auto) 1.5 % (0.0-7.0); Hematocrit 32.2 % (36.0-46.0); Hemoglobin 10.1 g/dL (12.2-16.2); Lymphocytes # (auto) 2.2 10 ^3/uL (0.4-5.4); Lymphocytes % (auto) 24.6 % (10.0-50.0); Mean Corpuscular Hemoglobin 27.3 pg (28.0-32.0); Mean Corpuscular Hgb Conc. 31.5 g/dL (32.0-36.0); Mean Corpuscular Volume 86.5 fL (80.0-100.0); Monocytes # (auto) 0.9 10 ^3/uL (0-1.3); Monocytes % (auto) 9.8 % (0.0-12.0); Neutrophils # (auto) 5.6 10 ^3/uL (1.6-8.6); Neutrophils % (auto) 63.1 % (37.0-80.0); Nucleated Red Blood Cells % 0.1 %; Red Blood Cells 3.72 10^6/uL (4.0-5.20); White Blood Cell 8.8 10^3/uL (4.4-10.8)
[2020-11-11 05:52] LABS: Albumin 2.8 g/dL (3.4-5.0); Calcium 8.8 mg/dL (8.5-10.1); Potassium 4.1 mmol/L (3.5-5.1)
[2020-11-11 05:56] LABS: BUN/Creatinine Ratio 30.9; Bilirubin, Total 0.5 mg/dL (0.2-1.0); Total Protein 7.3 g/dL (6.4-8.2)
[2020-11-11 05:57] LABS: Red Cell Distribution Width 21.8 % (11.8-14.3)
[2020-11-11] MEDS: InsuLIN REG 1unit/0.01ml Soln (100units/ml) SC SCH ×4 (06:31→22:28)
[2020-11-11] MEDS: ACCU-CHEK COMFORT CURVE STRIP VI SCH ×4 (06:31→22:28)
[2020-11-11 09:00] VITALS: BP 140/63
[2020-11-11] MEDS ORDERED: LIDOCAINE 1% HCL (LOCAL ANESTH.) INJ 20ML MDV ONE (11:23)
[2020-11-11] MEDS ORDERED: BUPIVACAINE 0.5% P/F INJ 10 ML VIAL ONE (11:23)
[2020-11-11] MEDS: AZITHROMYCIN 500MG/ 250ML 250 ML IV SCH (11:35)
[2020-11-11] MEDS: ZINC SULFATE 220mg CAP or TAB PO SCH (11:36)
[2020-11-11] MEDS: ENOXAPARIN SOD 40 MG/0.4 ML SYRINGE SC SCH (11:36)
[2020-11-11] MEDS: ASCORBIC ACID 500 MG TAB PO SCH ×2 (11:36→22:00)
[2020-11-11] MEDS: MULTIPLE VITAMIN TAB PO SCH (11:36)
[2020-11-11 13:00] VITALS: BP 140/72
[2020-11-11 16:43] VITALS: BP 142/82
[2020-11-11 22:00] VITALS: BP 154/73
[2020-11-12 05:00] VITALS: BP 158/78
[2020-11-12] MEDS: InsuLIN REG 1unit/0.01ml Soln (100units/ml) SC SCH ×3 (06:19→16:51)
[2020-11-12] MEDS: ACCU-CHEK COMFORT CURVE STRIP VI SCH ×3 (06:19→16:51)
[2020-11-12 08:56] VITALS: BP 145/67
[2020-11-12] MEDS: ZINC SULFATE 220mg CAP or TAB PO SCH (09:32)
[2020-11-12] MEDS: AZITHROMYCIN 500MG/ 250ML 250 ML IV SCH (09:32)
[2020-11-12] MEDS: ASCORBIC ACID 500 MG TAB PO SCH (09:33)
[2020-11-12] MEDS: MULTIPLE VITAMIN TAB PO SCH (09:33)
[2020-11-12] MEDS: ENOXAPARIN SOD 40 MG/0.4 ML SYRINGE SC SCH (09:33)
[2020-11-12] MEDS: ONDANSETRON HCL 4 MG/2 ML VIAL IV PRN (09:58)
[2020-11-12] MEDS: HYDROcodone-ACET 5/325MG TAB PO PRN (10:40)
[2020-11-12 13:00] VITALS: BP 160/87
[2020-11-12 16:43] VITALS: BP 131/76
== END 2020-11-12 17:43 | DRG 177 ==
LOC: EDBD 21:50 → ER 22:03 → OVERFLOW 11-10 06:10 → EAST 11-10 09:01 → TELE-EAST 11-10 10:26 → TELE-CENTR 11-10 21:01
PROVIDERS: ADMIT Nurse Practitioner Family; ATTEND Internal Medicine
DX: U07.1 COVID-19 (principal); E11.10 Type 2 diabetes mellitus with ketoacidosis without coma; J12.82 Pneumonia due to coronavirus disease 2019; J96.00 Acute respiratory failure, unspecified whether with hypoxia or hypercapnia; G93.41 Metabolic encephalopathy; J98.11 Atelectasis; N17.9 Acute kidney failure, unspecified; G72.81 Critical illness myopathy; E11.65 Type 2 diabetes mellitus with hyperglycemia; D64.9 Anemia, unspecified; Z20.822 Contact with and (suspected) exposure to COVID-19; B35.6 Tinea cruris; Z82.49 Family history of ischemic heart disease and other diseases of the circulatory system; Z83.3 Family history of diabetes mellitus
CPT/HCPCS: 36415; 71045; 80053; 81001; 82010; 82962; 83735; 83880; 84100; 84484; 85025; 85610; 87081; 87426; 93005; 96361; 96372; 96374; 97163; G0378; J1815; J2001; J2405; J3490

== ENCOUNTER 2021-03-16 09:56 | Emergency (ER) | payer BC ==
[~2021-03-16] VITALS: Ht 162.6 cm; Wt 74.4 kg
[2021-03-16 10:52] LABS: Urine Bacteria NONE SEEN /hpf (None Seen); Urine Blood 1+ /uL (Negative); Urine Specific Gravity 1.025 (1.001-1.035); Urine WBC 1 /hpf (0 - 5)
[2021-03-16 11:21] LABS: Basophils # (auto) 0.1 10 ^3/uL (0-0.2); Basophils % (auto) 0.8 % (0.0-2.0); Eosinophils # (auto) 0.1 10 ^3/uL (0-0.8); Eosinophils % (auto) 1.7 % (0.0-7.0); Hematocrit 39.9 % (36.0-46.0); Hemoglobin 13.3 g/dL (12.2-16.2); Lymphocytes # (auto) 1.9 10 ^3/uL (0.4-5.4); Lymphocytes % (auto) 25.2 % (10.0-50.0); Mean Corpuscular Hgb Conc. 33.3 g/dL (32.0-36.0); Monocytes # (auto) 0.4 10 ^3/uL (0-1.3); Monocytes % (auto) 4.6 % (0.0-12.0); Neutrophils # (auto) 5.2 10 ^3/uL (1.6-8.6); Neutrophils % (auto) 67.7 % (37.0-80.0); Nucleated Red Blood Cells % 0.1 %; Red Blood Cells 4.44 10^6/uL (4.0-5.20); Red Cell Distribution Width 14.6 % (11.8-14.3); White Blood Cell 7.7 10^3/uL (4.4-10.8)
[2021-03-16 11:37] LABS: Albumin 3.6 g/dL (3.4-5.0); Calcium 8.9 mg/dL (8.5-10.1); Potassium 4.5 mmol/L (3.5-5.1)
[2021-03-16 11:45] LABS: BUN/Creatinine Ratio 26.4; Total Protein 7.6 g/dL (6.4-8.2)
[2021-03-16 15:38] VITALS: BP 152/82
== END 2021-03-16 15:41 | disposition home or self-care (01) ==
LOC: ER 09:56
DX: E11.65 Type 2 diabetes mellitus with hyperglycemia (principal); I10 Essential (primary) hypertension; Z79.4 Long term (current) use of insulin; Z79.899 Other long term (current) drug therapy; Z20.822 Contact with and (suspected) exposure to COVID-19
CPT/HCPCS: 36415; 71045; 80053; 81001; 82962; 84484; 85025; 87426; 93005

== ENCOUNTER 2021-06-16 11:44 | Emergency (ER) | payer BC ==
[~2021-06-16] VITALS: Ht 157.5 cm; Wt 68.0 kg
[2021-06-16 12:02] VITALS: BP 164/104
[2021-06-16] MEDS ORDERED: KETOROLAC TROMETH 60MG/2ML VIAL IM ONE (12:15)
[2021-06-16] MEDS ORDERED: cefTRIAXone SOD 1,000 MG VL IM ONE (12:15)
[2021-06-16 12:30] LABS: Urine Bacteria NONE SEEN /hpf (None Seen); Urine Blood 2+ /uL (Negative); Urine Mucus FEW (None Seen); Urine Specific Gravity 1.017 (1.001-1.035); Urine WBC 2570 /hpf (0 - 5); Urine WBC Clumps PRESENT /hpf (None Seen)
[2021-06-16] MEDS ORDERED: ONDANSETRON ODT 4 MG TAB PO ONE (12:30)
[2021-06-16] MEDS ORDERED: PHEN200T16 PO (12:55)
[2021-06-16] MEDS ORDERED: LEVO500T31 PO (12:55)
== END 2021-06-16 13:17 | disposition home or self-care (01) ==
LOC: ER 11:44
DX: N39.0 Urinary tract infection, site not specified (principal); E11.9 Type 2 diabetes mellitus without complications; E78.5 Hyperlipidemia, unspecified; I10 Essential (primary) hypertension; Z90.49 Acquired absence of other specified parts of digestive tract; Z32.02 Encounter for pregnancy test, result negative
CPT/HCPCS: 81001; 81025; 96372; 99284; J0696; J1885; Q0162

== ENCOUNTER 2021-07-20 13:28 | Emergency (ER) | payer BC, OTHER ==
[~2021-07-20] VITALS: Ht 162.6 cm; Wt 68.0 kg
[~2021-07-20 13:28] MED LIST changes: +LEVO500T31 PO; +PHEN200T16 PO
[2021-07-20 15:26] VITALS: BP 158/65
[2021-07-20] MEDS ORDERED: ACET-1158 PO (17:51)
[2021-07-20] MEDS ORDERED: CYCL-837 PO (17:51)
== END 2021-07-20 18:17 | disposition home or self-care (01) ==
LOC: ER 13:32
DX: S16.1XXA Strain of muscle, fascia and tendon at neck level, initial encounter (principal); S09.90XA Unspecified injury of head, initial encounter; I10 Essential (primary) hypertension; E78.5 Hyperlipidemia, unspecified; E11.9 Type 2 diabetes mellitus without complications; Z90.49 Acquired absence of other specified parts of digestive tract; Z90.89 Acquired absence of other organs; W20.8XXA Other cause of strike by thrown, projected or falling object, initial encounter; Y93.89 Activity, other specified; Y92.89 Other specified places as the place of occurrence of the external cause; Y99.0 Civilian activity done for income or pay

== ENCOUNTER 2021-07-23 09:57 | Emergency (ER) | payer OTHER ==
[~2021-07-23] VITALS: Ht 162.6 cm; Wt 68.0 kg
[~2021-07-23 09:57] MED LIST changes: +ACET-1158 PO; +CYCL-837 PO
[2021-07-23 14:00] VITALS: BP 133/79
== END 2021-07-23 14:04 | disposition home or self-care (01) ==
LOC: ER 09:57
DX: S16.1XXA Strain of muscle, fascia and tendon at neck level, initial encounter (principal); F07.81 Postconcussional syndrome; I10 Essential (primary) hypertension; E11.9 Type 2 diabetes mellitus without complications; E78.5 Hyperlipidemia, unspecified; Z90.49 Acquired absence of other specified parts of digestive tract; Z90.89 Acquired absence of other organs; Z79.4 Long term (current) use of insulin; Z79.899 Other long term (current) drug therapy; W20.8XXA Other cause of strike by thrown, projected or falling object, initial encounter; Y93.89 Activity, other specified; Y92.89 Other specified places as the place of occurrence of the external cause; Y99.0 Civilian activity done for income or pay
CPT/HCPCS: 70450; 72125

== ENCOUNTER 2021-08-30 11:34 | Emergency (ER) | payer BC, OTHER ==
[~2021-08-30] VITALS: Ht 160 cm; Wt 68.0 kg
[2021-08-30] MEDS ORDERED: ASPirin 81 mg TAB PO ONE (12:00)
[2021-08-30 12:13] LABS: Basophils # (auto) 0.1 10 ^3/uL (0-0.2); Basophils % (auto) 0.5 % (0.0-2.0); Eosinophils # (auto) 0.1 10 ^3/uL (0-0.8); Eosinophils % (auto) 0.7 % (0.0-7.0); Hematocrit 40.2 % (36.0-46.0); Hemoglobin 13.5 g/dL (12.2-16.2); Lymphocytes # (auto) 1.6 10 ^3/uL (0.4-5.4); Mean Corpuscular Hemoglobin 31.1 pg (28.0-32.0); Mean Corpuscular Hgb Conc. 33.5 g/dL (32.0-36.0); Mean Corpuscular Volume 92.9 fL (80.0-100.0); Monocytes # (auto) 0.5 10 ^3/uL (0-1.3); Monocytes % (auto) 5.1 % (0.0-12.0); Neutrophils # (auto) 7.3 10 ^3/uL (1.6-8.6); Neutrophils % (auto) 76.7 % (37.0-80.0); Nucleated Red Blood Cells % 0.1 %; Red Blood Cells 4.33 10^6/uL (4.0-5.20); White Blood Cell 9.5 10^3/uL (4.4-10.8)
[2021-08-30 12:30] LABS: Albumin 3.2 g/dL (3.4-5.0); Calcium 8.6 mg/dL (8.5-10.1); Potassium 4.1 mmol/L (3.5-5.1)
[2021-08-30 12:34] LABS: BUN/Creatinine Ratio 19.2; Bilirubin, Total 0.5 mg/dL (0.2-1.0); Total Protein 7.2 g/dL (6.4-8.2)
[2021-08-30 17:58] VITALS: BP 142/65
== END 2021-08-30 18:03 | disposition home or self-care (01) ==
LOC: ER 11:34
DX: R07.89 Other chest pain (principal); E11.9 Type 2 diabetes mellitus without complications; E78.5 Hyperlipidemia, unspecified; Z90.49 Acquired absence of other specified parts of digestive tract; Z90.89 Acquired absence of other organs; Z97.10 Presence of artificial limb (complete) (partial), unspecified
CPT/HCPCS: 36415; 70450; 71045; 80053; 84484; 85025; 93005

== ENCOUNTER 2023-01-28 13:20 | Emergency (ER) | payer BC ==
[~2023-01-28] VITALS: Ht 157.5 cm; Wt 72.0 kg
[~2023-01-28 13:20] MED LIST changes: -ACET-1158 PO; +ACET500T58 PO; +GABA-1250 PO; -GABA300C10 PO; -LOSA-69 PO; +LOSA50TA46 PO; +PHEN-922 PO; -PHEN200T16 PO
[2023-01-28 14:39] LABS: Basophils # (auto) 0.1 10 ^3/uL (0-0.2); Basophils % (auto) 0.9 % (0.0-2.0); Eosinophils # (auto) 0.1 10 ^3/uL (0-0.8); Eosinophils % (auto) 2.6 % (0.0-7.0); Hematocrit 37.8 % (36.0-46.0); Hemoglobin 12.5 g/dL (12.2-16.2); Lymphocytes # (auto) 1.7 10 ^3/uL (0.4-5.4); Lymphocytes % (auto) 30.8 % (10.0-50.0); Mean Corpuscular Hemoglobin 31.1 pg (28.0-32.0); Mean Corpuscular Hgb Conc. 33.1 g/dL (32.0-36.0); Mean Corpuscular Volume 94.1 fL (80.0-100.0); Monocytes # (auto) 0.2 10 ^3/uL (0-1.3); Monocytes % (auto) 4.5 % (0.0-12.0); Neutrophils # (auto) 3.4 10 ^3/uL (1.6-8.6); Neutrophils % (auto) 61.2 % (37.0-80.0); Nucleated Red Blood Cells % 0.1 %; Red Blood Cells 4.02 10^6/uL (4.0-5.20); Red Cell Distribution Width 13.6 % (11.8-14.3); White Blood Cell 5.6 10^3/uL (4.4-10.8)
[2023-01-28 14:54] LABS: INR 0.98 (0.9-1.15); Prothrombin Time 10.3 sec (9.3-11.8)
[2023-01-28 14:58] LABS: Alanine Aminotransferase 21 U/L (7-40); Albumin 3.9 g/dL (3.2-4.8); Alkaline Phosphatase 75 U/L (46-116); Anion Gap 5 (5-15); Aspartate Aminotransferase 12 U/L (13-40); BUN/Creatinine Ratio 19.3 (10.0-20.0); Bilirubin, Total 0.4 mg/dL (0.2-1.0); Blood Urea Nitrogen 17 mg/dL (9-23); Calcium 8.6 mg/dL (8.5-10.1); Carbon Dioxide 28 mmol/L (20-30); Chloride 104 mmol/L (98-107); Glucose 229 mg/dL (74-106); Potassium 4.4 mmol/L (3.5-5.1); Sodium 137 mmol/L (136-145); Total Protein 6.6 g/dL (5.7-8.2)
[2023-01-28 16:28] VITALS: BP 155/66; PULSE 59; RESP 18; TEMP 97.8; O2SAT 100
== END 2023-01-28 16:35 | disposition home or self-care (01) ==
LOC: ER 13:20
DX: N93.9 Abnormal uterine and vaginal bleeding, unspecified (principal); R10.2 Pelvic and perineal pain; E11.65 Type 2 diabetes mellitus with hyperglycemia; I10 Essential (primary) hypertension; Z90.49 Acquired absence of other specified parts of digestive tract; Z90.89 Acquired absence of other organs; Z98.51 Tubal ligation status
CPT/HCPCS: 36415; 76830; 76856; 80053; 84702; 85025; 85610; 86900; 86901

== ENCOUNTER 2023-04-01 09:57 | Inpatient (IN) | payer BC ==
[~2023-04-01] VITALS: Ht 157.5 cm; Wt 72.2 kg
[2023-04-01] MEDS ORDERED: SODIUM CHLORIDE 0.9% IV ONE (10:15)
[2023-04-01] MEDS ORDERED: ONDANSETRON HCL 4 MG/2 ML VIAL IV ONE (10:15)
[2023-04-01] MEDS ORDERED: MORPHINE SULFATE INJ 2 MG/ml SYRG IV ONE (10:15)
[2023-04-01 10:47] LABS: Basophils # (auto) 0 10 ^3/uL (0-0.2); Basophils % (auto) 0.4 % (0.0-2.0); Eosinophils # (auto) 0.1 10 ^3/uL (0-0.8); Eosinophils % (auto) 1.1 % (0.0-7.0); Hemoglobin 12.8 g/dL (12.2-16.2); Lymphocytes # (auto) 1.4 10 ^3/uL (0.4-5.4); Mean Corpuscular Hemoglobin 30.5 pg (28.0-32.0); Mean Corpuscular Hgb Conc. 32.1 g/dL (32.0-36.0); Mean Corpuscular Volume 95.1 fL (80.0-100.0); Monocytes # (auto) 0.4 10 ^3/uL (0-1.3); Monocytes % (auto) 3.2 % (0.0-12.0); Neutrophils # (auto) 10.5 10 ^3/uL (1.6-8.6); Neutrophils % (auto) 84.3 % (37.0-80.0); Red Cell Distribution Width 13.7 % (11.8-14.3); White Blood Cell 12.5 10^3/uL (4.4-10.8)
[2023-04-01 11:13] LABS: Alanine Aminotransferase 20 U/L (7-40); Albumin 3.9 g/dL (3.2-4.8); Alkaline Phosphatase 102 U/L (46-116); Anion Gap 18 (5-15); Aspartate Aminotransferase 18 U/L (13-40); BUN/Creatinine Ratio 16.2 (10.0-20.0); Bilirubin, Total 0.8 mg/dL (0.2-1.0); Blood Urea Nitrogen 18 mg/dL (9-23); Calcium 8.7 mg/dL (8.7-10.4); Carbon Dioxide 15 mmol/L (20-30); Chloride 101 mmol/L (98-107); Lipase 24 U/L (12-53); Magnesium 1.6 mg/dL (1.6-2.6); Potassium 4.9 mmol/L (3.5-5.1); Sodium 134 mmol/L (136-145); Total Protein 6.8 g/dL (5.7-8.2)
[2023-04-01 11:20] LABS: Lactic Acid w/Reflex 2.9 mmol/L (0.4-2.0)
[2023-04-01 11:21] LABS: Glucose 490 mg/dL (74-106)
[2023-04-01] MEDS ORDERED: InsuLIN REG 1unit/0.01ml Soln (100units/ml) IV ONE (11:30)
[2023-04-01] MEDS ORDERED: DEXTROSE (50%) 50ML SYRG IV PRN ×3 (11:30→22:15)
[2023-04-01] MEDS ORDERED: DOCUSATE SOD 100 MG CAP PO PRN (12:30)
[2023-04-01] MEDS ORDERED: ONDANSETRON HCL 4 MG/2 ML VIAL IV PRN (12:30)
[2023-04-01] MEDS ORDERED: SODIUM CHLORIDE 0.9% 1,000 ML IV SCH ×3 (12:30→18:30)
[2023-04-01] MEDS ORDERED: IOHEXOL 300 MG/ML 100ML BOTTLE IJ ONE (12:46)
[2023-04-01] MEDS: ACCU-CHEK COMFORT CURVE STRIP VI SCH ×15 (13:16→23:30)
[2023-04-01] MEDS ORDERED: D5W/LACTATED RINGERS 1,000 ML IV ONE (13:30)
[2023-04-01] MEDS: INSULIN DRIP 100 UNIT/100ML 100 ML IV SCH (13:33)
[2023-04-01 13:48] LABS: Chloride 104 mmol/L (98-107); Potassium 4.1 mmol/L (3.5-5.1); Sodium 135 mmol/L (136-145)
[2023-04-01 13:49] LABS: Anion Gap 13 (5-15); Carbon Dioxide 18 mmol/L (20-30)
[2023-04-01 13:50] VITALS: PULSE 71; RESP 19; O2SAT 99
[2023-04-01 13:50] LABS: Calcium 8.8 mg/dL (8.7-10.4)
[2023-04-01 13:54] LABS: Glucose 301 mg/dL (74-106)
[2023-04-01 13:55] LABS: BUN/Creatinine Ratio 13.3 (10.0-20.0); Blood Urea Nitrogen 13 mg/dL (9-23); Magnesium 1.7 mg/dL (1.6-2.6)
[2023-04-01 13:57] LABS: Phosphorus 1.4 mg/dL (2.4-5.1)
[2023-04-01 14:04] LABS: Base Excess -2.6 mmol/L (-2.0-2.0)
[2023-04-01 14:34] LABS: Urine Bacteria NONE SEEN /hpf (None Seen); Urine Blood Negative /uL (Negative); Urine Clarity Clear (Clear); Urine Color Colorless (Yellow); Urine Protein, UAD Negative (Negative); Urine Specific Gravity 1.027 (1.001-1.035); Urine Urobilinogen Normal (Negative); Urine WBC <1 /hpf (0 - 5); Urine pH 5.5 (5.0-8.0)
[2023-04-01] MEDS: D5W/SOD CHLO 0.9% 1,000 ML IV SCH ×2 (15:00→23:15)
[2023-04-01] MEDS ORDERED: MAGNESIUM SULFATE 1GM/100ML 100 ML IV ONE (15:30)
[2023-04-01] MEDS: MAGNESIUM SULFATE 1GM/100ML 100 ML IV SCH ×2 (15:30→16:52)
[2023-04-01 18:53] LABS: Chloride 111 mmol/L (98-107); Potassium 3.8 mmol/L (3.5-5.1); Sodium 136 mmol/L (136-145)
[2023-04-01 18:54] LABS: Anion Gap 7 (5-15); Carbon Dioxide 18 mmol/L (20-30)
[2023-04-01 18:55] LABS: Calcium 8.1 mg/dL (8.7-10.4)
[2023-04-01 18:59] LABS: Glucose 78 mg/dL (74-106)
[2023-04-01 19:00] LABS: BUN/Creatinine Ratio 8.3 (10.0-20.0); Blood Urea Nitrogen 6 mg/dL (9-23)
[2023-04-01 19:30] VITALS: PULSE 76; RESP 16; O2SAT 97
[2023-04-01] MEDS ORDERED: ATORVASTATIN 20 MG TAB PO SCH (22:00)
[2023-04-02] MEDS ORDERED: ACETAMINOPHEN 325 MG TAB PO PRN (00:45)
[2023-04-02] MEDS ORDERED: GABAPENTIN 300 MG CAP PO ONE (01:00)
[2023-04-02] MEDS ORDERED: INSULIN LANTUS (GLARGINE) 1 /0.01ml (100units/ml) SC ONE ×2 (01:00)
[2023-04-02 01:35] LABS: Chloride 108 mmol/L (98-107); Potassium 3.7 mmol/L (3.5-5.1); Sodium 140 mmol/L (136-145)
[2023-04-02 01:36] LABS: Anion Gap 8 (5-15); Calcium 8.1 mg/dL (8.7-10.4); Carbon Dioxide 24 mmol/L (20-30)
[2023-04-02 01:41] LABS: BUN/Creatinine Ratio 14.3 (10.0-20.0); Blood Urea Nitrogen 12 mg/dL (9-23); Glucose 138 mg/dL (74-106)
[2023-04-02 03:04] VITALS: O2SAT 97
[2023-04-02] MEDS: D5W/SOD CHLO 0.9% 1,000 ML IV SCH (03:04)
[2023-04-02 05:00] VITALS: BP 131/61; PULSE 72; RESP 18; TEMP 98; O2SAT 97
[2023-04-02] MEDS: ACCU-CHEK COMFORT CURVE STRIP VI SCH ×3 (05:26→12:00)
[2023-04-02] MEDS: InsuLIN REG 1unit/0.01ml Soln (100units/ml) SC SCH ×3 (05:34→12:00)
[2023-04-02 06:47] LABS: Basophils # (auto) 0 10 ^3/uL (0-0.2); Basophils % (auto) 0.7 % (0.0-2.0); Eosinophils # (auto) 0.3 10 ^3/uL (0-0.8); Eosinophils % (auto) 4.4 % (0.0-7.0); Hemoglobin 11.6 g/dL (12.2-16.2); Lymphocytes # (auto) 2.8 10 ^3/uL (0.4-5.4); Lymphocytes % (auto) 39.1 % (10.0-50.0); Mean Corpuscular Hemoglobin 30.6 pg (28.0-32.0); Mean Corpuscular Hgb Conc. 33.2 g/dL (32.0-36.0); Mean Corpuscular Volume 92.1 fL (80.0-100.0); Monocytes # (auto) 0.5 10 ^3/uL (0-1.3); Monocytes % (auto) 6.9 % (0.0-12.0); Neutrophils # (auto) 3.6 10 ^3/uL (1.6-8.6); Neutrophils % (auto) 48.9 % (37.0-80.0); Nucleated Red Blood Cells % 0.1 %; Red Cell Distribution Width 13.3 % (11.8-14.3); White Blood Cell 7.3 10^3/uL (4.4-10.8)
[2023-04-02 08:00] VITALS: RESP 16; O2SAT 96
[2023-04-02 08:57] LABS: Alanine Aminotransferase 14 U/L (7-40); Alkaline Phosphatase 70 U/L (46-116); Anion Gap 9 (5-15); BUN/Creatinine Ratio 13.3 (10.0-20.0); Blood Urea Nitrogen 12 mg/dL (9-23); Calcium 7.9 mg/dL (8.7-10.4); Carbon Dioxide 23 mmol/L (20-30); Chloride 109 mmol/L (98-107); Glucose 177 mg/dL (74-106); Sodium 141 mmol/L (136-145)
[2023-04-02 08:58] LABS: Albumin 3.2 g/dL (3.2-4.8); Aspartate Aminotransferase 16 U/L (13-40); Bilirubin, Total 0.3 mg/dL (0.2-1.0); Total Protein 5.5 g/dL (5.7-8.2)
[2023-04-02 09:00] VITALS: BP 140/61; PULSE 69; RESP 96; TEMP 97.9; O2SAT 96
[2023-04-02] MEDS ORDERED: PANTOPRAZOLE 40 MG/10 ML VIAL INJ IV SCH (10:00)
[2023-04-02] MEDS ORDERED: GABAPENTIN 300 MG CAP PO SCH (10:00)
[2023-04-02] MEDS ORDERED: INSULIN LANTUS (GLARGINE) 1 /0.01ml (100units/ml) SC SCH (10:00)
[2023-04-02] MEDS ORDERED: LOSARTAN POTASSIUM 50 MG TAB PO SCH (10:00)
[2023-04-02] MEDS ORDERED: ASPirin 81 mg TAB PO SCH (10:00)
[2023-04-02] MEDS: INSULIN DRIP 100 UNIT/100ML 100 ML IV SCH (11:20)
[2023-04-02] MEDS ORDERED: LEVO500T91 PO (14:02)
[2023-04-02 14:42] VITALS: BP 140/61; TEMP 36.6
== END 2023-04-02 15:30 | disposition home or self-care (01) | DRG 871 ==
LOC: EDBD 09:57 → EDUNIT# 09:57 → ER 09:57 → TELE 12:42 → WEST WING 04-02 03:00
PROVIDERS: ADMIT Nurse Practitioner Family; ATTEND Internal Medicine
DX: A41.9 Sepsis, unspecified organism (principal); E10.10 Type 1 diabetes mellitus with ketoacidosis without coma; N17.9 Acute kidney failure, unspecified; E87.1 Hypo-osmolality and hyponatremia; I24.9 Acute ischemic heart disease, unspecified; E86.0 Dehydration; I10 Essential (primary) hypertension; Z96.41 Presence of insulin pump (external) (internal); E78.5 Hyperlipidemia, unspecified; E66.9 Obesity, unspecified; Z68.29 Body mass index [BMI] 29.0-29.9, adult; Z82.49 Family history of ischemic heart disease and other diseases of the circulatory system; Z83.3 Family history of diabetes mellitus; Z90.49 Acquired absence of other specified parts of digestive tract; Z98.51 Tubal ligation status
CPT/HCPCS: 36415; 36600; 71045; 74177; 80048; 80053; 81001; 82010; 82805; 82962; 83036; 83605; 83690; 83735; 83930; 84100; 84702; 85025; 87040; 93005; 93306; 96361; 96365; C9113; G0378; J1815; J7042

== ENCOUNTER 2023-08-19 15:59 | Inpatient (IN) | payer BC ==
[~2023-08-19] VITALS: Ht 160 cm; Wt 85.2 kg
[~2023-08-19 15:59] MED LIST changes: -LEVO500T31 PO; +LEVO500T91 PO; +LOSA-534 PO; -LOSA50TA46 PO
[2023-08-19 16:29] LABS: Basophils # (auto) 0.1 10 ^3/uL (0-0.2); Basophils % (auto) 0.7 % (0.0-2.0); Eosinophils # (auto) 0.1 10 ^3/uL (0-0.8); Eosinophils % (auto) 1.8 % (0.0-7.0); Hematocrit 38.1 % (36.0-46.0); Hemoglobin 12.5 g/dL (12.2-16.2); Lymphocytes # (auto) 2.1 10 ^3/uL (0.4-5.4); Lymphocytes % (auto) 26.4 % (10.0-50.0); Mean Corpuscular Hgb Conc. 32.7 g/dL (32.0-36.0); Mean Corpuscular Volume 91.7 fL (80.0-100.0); Monocytes # (auto) 0.5 10 ^3/uL (0-1.3); Monocytes % (auto) 6.1 % (0.0-12.0); Neutrophils # (auto) 5.1 10 ^3/uL (1.6-8.6); Nucleated Red Blood Cells % 0.1 %; Red Blood Cells 4.16 10^6/uL (4.0-5.20); Red Cell Distribution Width 14.2 % (11.8-14.3); White Blood Cell 7.8 10^3/uL (4.4-10.8)
[2023-08-19 16:30] LABS: Chloride 105 mmol/L (98-107); Potassium 4.2 mmol/L (3.5-5.1); Sodium 135 mmol/L (136-145)
[2023-08-19 16:31] LABS: Anion Gap 7 (5-15); Calcium 8.8 mg/dL (8.5-10.1); Carbon Dioxide 23 mmol/L (20-30)
[2023-08-19 16:36] LABS: BUN/Creatinine Ratio 13.6 (10.0-20.0); Blood Urea Nitrogen 15 mg/dL (9-23); Glucose 259 mg/dL (74-106)
[2023-08-19 16:48] LABS: Urine Bacteria FEW /hpf (None Seen); Urine Blood 1+ /uL (Negative); Urine Budding Yeast OCCASIONAL /hpf (None Seen); Urine Clarity Turbid (Clear); Urine Color Colorless (Yellow); Urine Protein, UAD Negative (Negative); Urine Urobilinogen Normal (Negative); Urine WBC 279 /hpf (0 - 5); Urine WBC Clumps PRESENT /hpf (None Seen); Urine pH 5.5 (5.0-9.0)
[2023-08-19] MEDS: PIPERACILLIN-TAZOB 3.375GM 100 ML IV SCH (17:00)
[2023-08-19] MEDS: SODIUM CHLORIDE 0.9% 1,000 ML IVB ONE (17:12)
[2023-08-19] MEDS: ONDANSETRON HCL 4 MG/2 ML VIAL IV ONE (17:21)
[2023-08-19] MEDS: MORPHINE SULFATE 4 MG/ML SYR/VIAL IV ONE (17:29)
[2023-08-19] MEDS: PIPERACILLIN-TAZOB 3.375GM 100 ML IV ONE (17:32)
[2023-08-19 18:18] VITALS: PULSE 53; RESP 14; O2SAT 97
[2023-08-19] MEDS: SODIUM CHLORIDE 0.9% 1,000 ML IV ONE (18:43)
[2023-08-19 19:25] VITALS: PULSE 61; RESP 11; O2SAT 100
[2023-08-19] MEDS ORDERED: DEXTROSE (50%) 50ML SYRG IV PRN (21:30)
[2023-08-19] MEDS ORDERED: ACETAMINOPHEN 325 MG TAB PO PRN (21:30)
[2023-08-19] MEDS ORDERED: DOCUSATE SOD 100 MG CAP PO PRN (21:30)
[2023-08-19] MEDS: SODIUM CHLORIDE 0.9% 1,000 ML IV SCH (21:43)
[2023-08-19] MEDS: InsuLIN REG 1unit/0.01ml Soln (100units/ml) SC SCH (22:00)
[2023-08-19] MEDS: ACCU-CHEK COMFORT CURVE STRIP VI SCH (22:15)
[2023-08-19] MEDS: MORPHINE SULFATE INJ 2 MG/ml SYRG IV PRN (22:18)
[2023-08-19] MEDS: ONDANSETRON HCL 4 MG/2 ML VIAL IV PRN (22:19)
[2023-08-19] MEDS ORDERED: MORPHINE SULFATE INJ 2 MG/ml SYRG IV PRN (22:30)
[2023-08-19] MEDS ORDERED: NITROGLYCERIN 0.4 MG SL TAB SL PRN (22:30)
[2023-08-20] VITALS (7 sets, daily range): BP systolic 126–154; BP diastolic 41–72; PULSE 63–72; RESP 12–19; TEMP 97.6–98.1; O2SAT 99–100
[2023-08-20 05:40] LABS: Basophils # (auto) 0.1 10 ^3/uL (0-0.2); Basophils % (auto) 0.8 % (0.0-2.0); Eosinophils # (auto) 0.3 10 ^3/uL (0-0.8); Eosinophils % (auto) 4.6 % (0.0-7.0); Hematocrit 35.7 % (36.0-46.0); Hemoglobin 11.7 g/dL (12.2-16.2); Lymphocytes # (auto) 2.7 10 ^3/uL (0.4-5.4); Lymphocytes % (auto) 41.3 % (10.0-50.0); Mean Corpuscular Hemoglobin 30.3 pg (28.0-32.0); Mean Corpuscular Hgb Conc. 32.8 g/dL (32.0-36.0); Mean Corpuscular Volume 92.5 fL (80.0-100.0); Monocytes # (auto) 0.5 10 ^3/uL (0-1.3); Monocytes % (auto) 7.2 % (0.0-12.0); Neutrophils % (auto) 46.1 % (37.0-80.0); Nucleated Red Blood Cells % 0.1 %; Red Blood Cells 3.86 10^6/uL (4.0-5.20); Red Cell Distribution Width 14.3 % (11.8-14.3); White Blood Cell 6.5 10^3/uL (4.4-10.8)
[2023-08-20 06:15] LABS: Alanine Aminotransferase 15 U/L (7-40); Albumin 3.3 g/dL (3.2-4.8); Alkaline Phosphatase 59 U/L (46-116); Anion Gap 4 (5-15); Aspartate Aminotransferase 15 U/L (13-40); BUN/Creatinine Ratio 11.3 (10.0-20.0); Bilirubin, Total 0.6 mg/dL (0.2-1.0); Blood Urea Nitrogen 11 mg/dL (9-23); Calcium 8.5 mg/dL (8.5-10.1); Carbon Dioxide 27 mmol/L (20-30); Chloride 111 mmol/L (98-107); Glucose 133 mg/dL (74-106); Potassium 3.9 mmol/L (3.5-5.1); Sodium 142 mmol/L (136-145)
[2023-08-20 06:16] LABS: Total Protein 5.8 g/dL (5.7-8.2)
[2023-08-20] MEDS: InsuLIN REG 1unit/0.01ml Soln (100units/ml) SC SCH (06:32)
[2023-08-20] MEDS: HYDROcodone-ACET 5/325MG TAB PO PRN (06:36)
[2023-08-20] MEDS: ONDANSETRON HCL 4 MG/2 ML VIAL IV ONE (11:15)
[2023-08-21 06:19] LABS: Chloride 108 mmol/L (98-107); Potassium 3.9 mmol/L (3.5-5.1); Sodium 139 mmol/L (136-145)
[2023-08-21 06:20] LABS: Anion Gap 3 (5-15); Carbon Dioxide 28 mmol/L (20-30)
[2023-08-21 06:21] LABS: Basophils # (auto) 0.1 10 ^3/uL (0-0.2); Basophils % (auto) 0.9 % (0.0-2.0); Calcium 8.3 mg/dL (8.7-10.4); Eosinophils # (auto) 0.3 10 ^3/uL (0-0.8); Eosinophils % (auto) 4.1 % (0.0-7.0); Hematocrit 35.2 % (36.0-46.0); Hemoglobin 11.8 g/dL (12.2-16.2); Lymphocytes # (auto) 2.5 10 ^3/uL (0.4-5.4); Lymphocytes % (auto) 39.8 % (10.0-50.0); Mean Corpuscular Hgb Conc. 33.6 g/dL (32.0-36.0); Mean Corpuscular Volume 92.4 fL (80.0-100.0); Monocytes # (auto) 0.4 10 ^3/uL (0-1.3); Monocytes % (auto) 7.1 % (0.0-12.0); Neutrophils % (auto) 48.1 % (37.0-80.0); Nucleated Red Blood Cells % 0.1 %; Red Cell Distribution Width 14.2 % (11.8-14.3); White Blood Cell 6.3 10^3/uL (4.4-10.8)
[2023-08-21 06:26] LABS: BUN/Creatinine Ratio 11.8 (10.0-20.0); Blood Urea Nitrogen 12 mg/dL (9-23); Glucose 174 mg/dL (74-106)
[2023-08-21 08:00] VITALS: BP 128/64; PULSE 71; RESP 18; O2SAT 96
[2023-08-21 08:07] VITALS: BP 128/64; PULSE 71; RESP 18; TEMP 98.3; O2SAT 96
[2023-08-21] MEDS: SODIUM CHLORIDE 0.9% 1,000 ML IV SCH (10:17)
[2023-08-21 11:44] VITALS: BP 135/66; PULSE 70; RESP 18; TEMP 98; O2SAT 98
[2023-08-21 16:55] VITALS: BP 100/52; PULSE 65; RESP 18; TEMP 98; O2SAT 97
[2023-08-21 20:00] VITALS: BP 137/65; PULSE 60; RESP 18; TEMP 98.3; O2SAT 98
[2023-08-21 22:00] VITALS: BP 137/65; PULSE 60; RESP 18; TEMP 98.3; O2SAT 98
[2023-08-22] VITALS (9 sets, daily range): BP systolic 116–152; BP diastolic 57–78; PULSE 55–73; RESP 15–20; TEMP 97.9–98.3; O2SAT 95–100
[2023-08-22 07:00] LABS: Anion Gap 5 (5-15); Carbon Dioxide 29 mmol/L (20-30); Chloride 107 mmol/L (98-107); Potassium 3.6 mmol/L (3.5-5.1); Sodium 141 mmol/L (136-145)
[2023-08-22 07:02] LABS: Calcium 8.6 mg/dL (8.7-10.4)
[2023-08-22 07:06] LABS: BUN/Creatinine Ratio 16.7 (10.0-20.0); Blood Urea Nitrogen 16 mg/dL (9-23); Glucose 109 mg/dL (74-106)
[2023-08-22] MEDS: hydrALAZINE HCL 20 MG/ML VL IV PRN (08:09)
[2023-08-22] MEDS: DOCUSATE SOD 100 MG CAP PO ONE (12:39)
[2023-08-22] MEDS: LACTULOSE 20Gm/30ML SOLN PO ONE (12:39)
[2023-08-22] MEDS: DOCUSATE SOD 100 MG CAP PO SCH (21:45)
[2023-08-23 00:46] VITALS: BP 131/57; PULSE 63; RESP 16; TEMP 97.9; O2SAT 97
[2023-08-23 05:00] VITALS: BP_SYST 108; BP_SYST 132; BP_DIAS 60; PULSE 68; PULSE 77; RESP 18; RESP 20; TEMP 98.1; TEMP 98.3; O2SAT 93
[2023-08-23 08:00] VITALS: BP 149/77; PULSE 79; RESP 20; TEMP 98.4; O2SAT 97
[2023-08-23] MEDS: cefTRIAXone 1GM/50ML D5W 50 ML IV SCH (09:08)
[2023-08-23] MEDS ORDERED: CIPR250T3 PO (11:06)
[2023-08-23 12:00] VITALS: BP 103/56; PULSE 73; RESP 18; TEMP 98.1; O2SAT 93
[2023-08-23 13:44] VITALS: BP 145/68; PULSE 63; RESP 20; TEMP 98.4; O2SAT 96
== END 2023-08-23 15:25 | disposition home or self-care (01) | DRG 871 ==
LOC: ER 15:59 → OVERFLOW 22:29 → WEST WING 08-20 15:24
PROVIDERS: ADMIT Nurse Practitioner Family; ATTEND Internal Medicine Geriatric Medicine
DX: A41.51 Sepsis due to Escherichia coli [E. coli] (principal); N17.0 Acute kidney failure with tubular necrosis; N13.6 Pyonephrosis; N20.0 Calculus of kidney; E10.65 Type 1 diabetes mellitus with hyperglycemia; K59.00 Constipation, unspecified; I10 Essential (primary) hypertension; E10.40 Type 1 diabetes mellitus with diabetic neuropathy, unspecified; E78.5 Hyperlipidemia, unspecified; R15.9 Full incontinence of feces; N83.202 Unspecified ovarian cyst, left side; Z90.49 Acquired absence of other specified parts of digestive tract; Z79.84 Long term (current) use of oral hypoglycemic drugs; Z82.49 Family history of ischemic heart disease and other diseases of the circulatory system; Z79.4 Long term (current) use of insulin; Z83.3 Family history of diabetes mellitus
CPT/HCPCS: 36415; 74176; 80048; 80053; 81001; 82962; 85025; 87086; 87088; 87186; 96361; 96374; 96375; G0378; J1815; J2405; J2543